=== PATIENT | female | born 1985 | race Caucasian/White ===

== ENCOUNTER 2017-02-11 09:30 | Outpatient (CLI) | payer MEDICAID ==
[~2017-02-11] VITALS: Ht 152.4 cm; Wt 59.1 kg
[~2017-02-11 09:30] MED LIST: ACET500C5 PO; DENIES
[2017-02-11 09:38] VITALS: Ht 152.4 cm; Wt 59.1 kg
[2017-02-11] MEDS ORDERED: PRENAT PO (09:39)
--- NOTE | 2017-02-11 10:10 | RADRPT ---
PROCEDURE: Limited OB ultrasound CLINICAL INDICATION: Vaginal bleeding TECHNIQUE: Sonographic evaluation to assess the placenta was performed. Transabdominal imaging of the gravid uterus was performed. COMPARISON: No prior exam is available for comparison. FINDINGS: There is a single live intrauterine with cardiac activity, with a heart rate o f 136 bpm. position is cephalic. The placenta is posterior. There is no evidence of placent al abruption or previa. The cervix is closed with a length of 5.1 cm. IMPRESSION: 1. Posterior placenta without evidence of placental abruption or previa. 2. The cervix is closed with a length of 5.1 cm. RPTAT: HH .Cammy Belcher MD, MD Date Time Electronically viewed and signed by .Cammy Belcher MD, on 02/11/2017 10:10 .G/
[2017-02-11 11:08] LABS: URINE BLOOD (Dip) POC 3+ (NEGATIVE)
--- NOTE | 2017-02-11 11:53 | TRIAGE ---
OB Triage Datetime Report Generated by CPN: 02/11/2017 11:53 Datetime: 02/11/2017 11:16 Stage of : OB Triage Maternal Assessment Level of Consciousness: Fully Conscious DTR's/Clonus: DTRs 1+ Headache: Denies Breath Sounds, Left: Clear and Equal Breath Sounds, Right: Clear and Equal Nausea/Vomiting: Denies RUQ Epigastric Pain: Denies Labor Evaluation Frequency: NONE Monitor Mode: External Resting Tone [place]: Relaxed Heart Rate FHR Baseline Rate: 145 Monitor Mode: External US Variability: Moderate 6-25 bpm Accelerations: 10X10 Decelerations: None Category: Category I Pain Assessment Pain Scale: 2 Pain Presence: Intermittent Pain Type: Dull Pain Location: Back Pain Goal: 2 Vaginal Exam Membrane Status: Intact Datetime: 02/11/2017 10:50 Stage of : OB Triage Maternal Assessment Level of Consciousness: Fully Conscious DTR's/Clonus: DTRs 1+ Headache: Denies Breath Sounds, Left: Clear and Equal Breath Sounds, Right: Clear and Equal Nausea/Vomiting: Denies RUQ Epigastric Pain: Denies Labor Evaluation Frequency: NONE Monitor Mode: External Resting Tone [place]: Relaxed Heart Rate FHR Baseline Rate: 145 Monitor Mode: External US Variability: Moderate 6-25 bpm Accelerations: 10X10 Decelerations: None Category: Category I Pain Assessment Pain Scale: 2 Pain Presence: Intermittent Pain Type: Dull Pain Location: Back Pain Goal: 2 Vaginal Exam Membrane Status: Intact Datetime: 02/11/2017 09:59 Maternal Assessment Level of Consciousness: Fully Conscious DTR's/Clonus: DTRs 1+ Headache: Denies Blurred Vision: No Respiratory Effort: Unlabored Breath Sounds, Left: Clear and Equal Breath Sounds, Right: Clear and Equal Nausea/Vomiting: Denies RUQ Epigastric Pain: Denies Facial Edema: None Labor Evaluation Frequency: NONE Monitor Mode: External Resting Tone [place]: Relaxed Heart Rate FHR Baseline Rate: 165 Monitor Mode: Doppler Vaginal Exam Membrane Status: Intact Datetime: 02/11/2017 09:35 Assessment Type: Triage Maternal Assessment Level of Consciousness: Fully Conscious DTR's/Clonus: DTRs 2+; No Clonus Headache: Denies Blurred Vision: No Respiratory Effort: Unlabored; Regular Rhythm; Equal Expansion Breath Sounds, Left: Clear and Equal Breath Sounds, Right: Clear and Equal Nausea/Vomiting: Denies RUQ Epigastric Pain: Denies Lower Extremities Edema: None Degree: None Upper Extremities Edema: None Degree: None Facial Edema: None Fall Risk Assessment History of Falling: (0) No Secondary Diagnosis: (0) No Ambulatory Aid: (0) Bedrest/Nurse Assist IV Therapy: (0) No Gait: (0) Normal/Bedrest/Immobile Mental Status: (0) Oriented to Own Ability Fall Score: 0 Fall Risk Score Definition: No Risk: No action required Datetime: 02/11/2017 09:34 EGA: 27.1 Datetime: 02/11/2017 09:30 Time of Arrival: 02/11/2017 09:30 Arrived By: Ambulatory Arrived From: Home Chief Complaint: PT CAME N C/O BLEEDING SINCE SATURDAY AND PASSING 1 CLOTH TODAY Movement: Present Contractions: Denies/Absent Rupture of Membranes: Denies Vaginal Discharge: Denies Recent Sexual Intercouse: Denies Abdominal Trauma: Not Applicable Additional Patient Complaints: NONE Time Provider Notified: 02/11/2017 09:48 Provider Notified: [facility] Initial Plan: DOPPLER AND MONITOR PLACENTA LOCATION U/S, CERVICAL LENGTH Datetime: 02/11/2017 09:25 Stage of : OB Triage
--- NOTE | 2017-03-17 18:07 | DS ---
Date/Time of Note Date/Time of Note DATE: 03/17/17 TIME: 17:58 Discharge Summary Admission/Discharge Info Admit Date/Time 02/11/17 Discharge Date/Time 02/11/17 Final Diagnosis passed small blood clot us report no pp discharged home with home instruction Patient Condition: Good Procedures observation Hx of Present Illness r/o labor Hospital Course satisfactory uneventful Home Meds Reported Medications Hydroxyprogesterone Caproate ([place]) 250 Mg/1 Ml Vial, 250 MG IM, VIAL 02/25/17 Multivit/Min/Fol Ac/Iron/Pren* ( S*) 1 Tab Tab, 1 TAB PO DAILY, TAB 02/11/17 Follow-up Plan office appointment RAYA BASS MD March 17, 2017 18:07
--- NOTE | 2017-03-26 19:40 | QN ---
Documentation Comment 27 weeks suspected labor RAYA BASS MD March 26, 2017 19:40
== END 2017-02-11 11:30 | disposition home or self-care (01) ==
LOC: OBT 09:30 → L-D 09:31 → OBT 11:30
PROVIDERS: ATTEND Obstetrics & Gynecology
DX: O26.892 Other specified pregnancy related conditions, second trimester (principal); Z3A.27 27 weeks gestation of pregnancy
CPT/HCPCS: 76815; 76817; 81003; Z7500; G0463

== ENCOUNTER 2017-02-25 11:21 | Outpatient (CLI) | payer MEDICAID ==
[~2017-02-25] VITALS: Ht 152.4 cm; Wt 60.5 kg
[~2017-02-25 11:21] MED LIST changes: +PRENAT PO
[2017-02-25 11:33] VITALS: BP 113/63; PULSE 100; RESP 16; Ht 152.4 cm; Wt 60.5 kg
[2017-02-25] MEDS ORDERED: HYDR250V5 IM (11:36)
--- NOTE | 2017-02-25 11:59 | RADRPT ---
PROCEDURE: Limited obstetric ultrasound CLINICAL INDICATION: Vaginal bleeding TECHNIQUE: Multiple transverse and longitudinal grayscale images of the pelvis were obtained peace sabdominally and transvaginally.. COMPARISON: 02/11/2017 FINDINGS: The cervix is closed with a length of 4.1 cm. There is a single viable intrauterine gestation. Cardiac activity is present with 148 beats per min marily. There is a vertex presentation. The placenta is posterior. There is no evidence for an abruption or placenta previa. RPTAT: AA IMPRESSION: Cervix length measures 4.1 cm. .Franko Can MD, Date Time Electronically viewed and signed by .Franko Can MD, on 02/25/2017 11:58 .S/
--- NOTE | 2017-02-25 12:43 | TRIAGE ---
OB Triage Datetime Report Generated by CPN: 02/25/2017 12:42 Datetime: 02/25/2017 12:33 Labor Evaluation Frequency: x1 Monitor Mode: External Duration (sec)2399: 20 Quality: Mild Pattern: Normal: <= 5 Contractions in 10 Minutes Resting Tone [place]: Relaxed Heart Rate FHR Baseline Rate: 145 Monitor Mode: External US Variability: Moderate 6-25 bpm Accelerations: 15X15 Decelerations: None Category: Category I Pain Assessment Pain Scale: 3 Pain Presence: Intermittent Pain Type: Dull Pain Location: Abdomen Pain Goal: 3 Datetime: 02/25/2017 12:01 Pattern: Normal: <= 5 Contractions in 10 Minutes Contraction Comments: no uc Heart Rate FHR Baseline Rate: 145 Monitor Mode: External US Variability: Moderate 6-25 bpm Accelerations: 15X15 Decelerations: None Category: Category I Pain Assessment Pain Scale: 3 Pain Presence: Intermittent Pain Type: Pressure Pain Location: Abdomen Pain Goal: 3 Datetime: 02/25/2017 11:46 Assessment Type: Triage Maternal Assessment Level of Consciousness: Fully Conscious DTR's/Clonus: DTRs 2+; No Clonus Headache: Denies Blurred Vision: No Respiratory Effort: Unlabored; Regular Rhythm; Equal Expansion Breath Sounds, Left: Clear and Equal Breath Sounds, Right: Clear and Equal Nausea/Vomiting: Denies RUQ Epigastric Pain: Denies Facial Edema: None Fall Risk Assessment History of Falling: (0) No Secondary Diagnosis: (0) No Ambulatory Aid: (0) Bedrest/Nurse Assist IV Therapy: (0) No Gait: (0) Normal/Bedrest/Immobile Mental Status: (0) Oriented to Own Ability Fall Score: 0 Fall Risk Score Definition: No Risk: No action required Datetime: 02/25/2017 11:27 Time of Arrival: 02/25/2017 11:10 EGA: 29.1 Arrived By: Ambulatory Arrived From: Home Chief Complaint: PT. came to hospital c/o mild vag bleeding start 3 days ago, pt. is on orlin 250 mg im weekly Movement: Present Contractions: Denies/Absent Rupture of Membranes: Denies Vaginal Bleeding: Bright Red Vaginal Discharge: Denies Recent Sexual Intercouse: Denies Abdominal Trauma: Not Applicable Patient Complaints: Other Time Provider Notified: 02/25/2017 12:26 Provider Notified: kay Initial Plan: u/s placenta cxl Datetime: 02/11/2017 09:35 Fall Score: 0 Fall Risk Score Definition: No Risk: No action required Datetime: 02/11/2017 09:34 EGA: 27.1
--- NOTE | 2017-03-17 18:41 | DS ---
Date/Time of Note Date/Time of Note DATE: 03/17/17 TIME: 18:37 Obstetrical Discharge Record Final Diagnosis Final Diagnosis: not delivered Complications Other Augmentation: No Induction: No Third Trimester Bleeding: Other Rupture of Membranes: No Condition on Discharge Physical Assessment Last Vitals: vs stable Voiding: Yes Breast: Soft, non-tender, Filling Calf Tenderness: No Patient Condition: Good RAYA BASS MD March 17, 2017 18:41
--- NOTE | 2017-03-26 19:44 | QN ---
Documentation Comment suspected labor RAYA BASS MD March 26, 2017 19:44
== END 2017-02-25 12:50 | disposition home or self-care (01) ==
LOC: OBT 11:21 → L-D 11:22 → OBT 12:50
PROVIDERS: ATTEND Obstetrics & Gynecology
DX: O60.03 Preterm labor without delivery, third trimester (principal); O46.93 Antepartum hemorrhage, unspecified, third trimester; Z3A.29 29 weeks gestation of pregnancy
CPT/HCPCS: 76815; 76817; Z7500; G0463

== ENCOUNTER 2017-04-27 01:51 | Inpatient (IN) | payer MEDICAID ==
[~2017-04-27] VITALS: Ht 152.4 cm; Wt 63.6 kg
[~2017-04-27 01:51] MED LIST changes: -ACET500C5 PO; -DENIES; +HYDR250V5 IM
[2017-04-27 02:21] VITALS: Ht 152.4 cm; Wt 63.6 kg
[2017-04-27 02:22] VITALS: BP 132/82; PULSE 105; RESP 18
[2017-04-27] MEDS ORDERED: LACTATED RINGER'S 1,000 ML IV SCH (02:23)
[2017-04-27] MEDS ORDERED: MISOPROSTOL 200 MCG TAB PR PRN ×2 (02:30→10:30)
[2017-04-27] MEDS ORDERED: OXYTOCIN 30 UNITS/LR 500 ML IV SCH (02:30)
[2017-04-27] MEDS ORDERED: CARBOPROST 250 MCG INJ IM PRN ×2 (02:30→10:30)
[2017-04-27] MEDS ORDERED: METHYLERGONOVINE 0.2 MG INJ IM PRN ×2 (02:30→10:30)
[2017-04-27] MEDS ORDERED: OXYTOCIN 30 UNITS/LR 500 ML IV PRN ×2 (02:30→10:30)
[2017-04-27] MEDS ORDERED: CEFAZOLIN 2 GM/50 ML (PMX) 50 ML IV SCH (02:30)
[2017-04-27 02:49] LABS: ADD SCAN DIFF NO
[2017-04-27 02:50] LABS: BASOPHILS % 0.2 % (0.0-2.0); EOSINOPHILS # 0.1 10^3/ul (0.0-0.5); EOSINOPHILS % 0.8 % (0.0-7.0); HEMATOCRIT 37.4 % (37.0-47.0); HEMOGLOBIN 12.7 g/dl (12.0-16.0); LYMPHOCYTES # 2.1 10^3/ul (0.8-2.9); LYMPHOCYTES % 24.3 % (15.0-51.0); MEAN CORPUSCULAR HEMOGLOBIN 29.4 pg (29.0-33.0); MEAN CORPUSCULAR VOLUME 86.6 fl (82.0-101.0); MONOCYTE # 0.7 10^3/ul (0.3-0.9); MONOCYTES % 7.5 % (0.0-11.0); NEUTROPHIL # 5.9 10^3/ul (1.6-7.5); NEUTROPHILS % 66.6 % (39.0-77.0); PLATELET COUNT 260 10^3/UL (140-415); RED BLOOD COUNT 4.32 10^6/ul (4.20-5.40); RED CELL DISTRIBUTION WIDTH 12.6 % (11.5-14.5); WHITE BLOOD COUNT 8.8 10^3/ul (4.8-10.8)
[2017-04-27 03:11] LABS: INR 0.83; PROTIME 11.4 Sec (12.2-14.2); PT RATIO 0.9
[2017-04-27 03:12] LABS: PARTIAL THROMBOPLASTIN TIME 25.3 Sec (25.0-35.0)
[2017-04-27] MEDS ORDERED: CITRIC ACID/SODIUM CITRATE 15 ML CUP ONE (03:38)
[2017-04-27] MEDS ORDERED: FENTAnyl 50 MCG/ML VIAL ONE (03:43)
[2017-04-27] MEDS ORDERED: morphine SULFATE/PF (10 MG/10 ML) INJ ONE (03:43)
[2017-04-27] MEDS ORDERED: ONDANSETRON 4 MG INJ ONE (04:16)
[2017-04-27] MEDS ORDERED: MIDAZOLAM 1 MG/ML 2 ML INJ ONE (04:16)
[2017-04-27] MEDS ORDERED: EPHEDrine SULFATE 50 MG/5 ML SYG ONE (04:22)
[2017-04-27] MEDS ORDERED: MEPERIDINE 25 MG INJ IV PRN ×2 (04:30→09:00)
[2017-04-27] MEDS ORDERED: PROCHLORPERAZINE 10 MG INJ IV PRN (04:30)
[2017-04-27] MEDS ORDERED: OXYTOCIN 30 UNITS/LR 500 ML IV ONE (04:30)
[2017-04-27] MEDS ORDERED: KETOROLAC 30 MG INJ IV PRN ×3 (04:30→22:00)
[2017-04-27] MEDS ORDERED: FENTAnyl 50 MCG/ML VIAL IV PRN ×3 (04:30→09:00)
[2017-04-27] MEDS ORDERED: HYDROmorphONE (0.2 MG/ML) 10ML SYG IV PRN (04:30)
[2017-04-27] MEDS ORDERED: DIPHENHYDRAMINE 50 MG INJ IV PRN ×2 (04:30→09:00)
[2017-04-27] MEDS ORDERED: ONDANSETRON 4 MG INJ IV PRN ×2 (04:30→09:00)
[2017-04-27] MEDS ORDERED: PHENYLephrine (100 MCG/ML) 5ML SYG ONE (04:34)
--- NOTE | 2017-04-27 06:49 | HP ---
DATE OF ADMISSION: 04/27/2017 HISTORY OF PRESENT ILLNESS: The patient is a 31-year-old, G3, P2 who presents at 37-1/2 weeks compl aining of uterine contractions, no vaginal bleeding, positive movement. PAST MEDICAL HISTORY: None. PAST SURGICAL HISTORY: x1. MEDICATIONS: vitamins. PHYSICAL EXAMINATION: VITAL SIGNS: Stable. HEART: Regular rhythm. LUNGS: Clear to auscultation bilaterally. ABDOMEN: Soft, nontender. No rebound or guarding. Fundal height is 38.8 cm. EXTREMITIES: No edema. Category 1 tracing. The patient is 6 to 7 cm in advanced labor. ASSESSMENT: Intrauterine at 37-1/2 weeks in active labor. Patient has history of section x1 in the past. Risks and benefits discussed with the patie nt who desired repeat section. Risks of infection, bleeding, damage to organs, plus a bloo d transfusion all discussed with the patient. The patient understands the risks and consents to the repeat section. Dictated By: BETI MCGEE MD /BALJEET Conf#: [id number] DID#: [id number]
[2017-04-27 08:45] VITALS: BP 128/78; PULSE 103; RESP 20
[2017-04-27] MEDS ORDERED: MIDAZOLAM 1 MG/ML 2 ML INJ IV PRN (09:00)
[2017-04-27] MEDS ORDERED: morphine (1 MG/ML) 10ML SYRINGE IV PRN ×2 (09:00)
[2017-04-27] MEDS ORDERED: METOCLOPRAMIDE 10 MG INJ IV PRN (09:00)
[2017-04-27] MEDS: LACTATED RINGER'S 1,000 ML IV SCH ×2 (10:09→19:55)
[2017-04-27] MEDS ORDERED: NA PHOSPHATE/BIPHOS 133 ML ENEMA PR PRN (10:30)
[2017-04-27] MEDS: MULTIVIT/MIN/FOLATE/IRON/PREN TAB PO SCH (10:30)
[2017-04-27] MEDS ORDERED: LANOLIN 7 GM TUBE TOP PRN (10:30)
[2017-04-27] MEDS: OXYTOCIN 30 UNITS/LR 500 ML IV SCH ×2 (10:55→15:04)
[2017-04-27 12:00] VITALS: BP 110/69; RESP 20
[2017-04-27 15:06] VITALS: BP 120/72; PULSE 100; RESP 18
[2017-04-27] MEDS ORDERED: KETOROLAC 30 MG INJ ONE (19:52)
[2017-04-27 20:00] VITALS: BP 117/74; PULSE 100; RESP 20
[2017-04-27] MEDS ORDERED: morphine 10 MG INJ IM PRN (20:00)
[2017-04-27 23:30] VITALS: BP 92/56; PULSE 83; RESP 18
[2017-04-28] MEDS: LACTATED RINGER'S 1,000 ML IV SCH (02:09)
[2017-04-28 04:30] VITALS: BP 112/62; PULSE 84; RESP 18
[2017-04-28] MEDS: IBUPROFEN 800 MG TAB PO SCH ×3 (06:13→21:34)
[2017-04-28 07:30] VITALS: BP 92/54; PULSE 84; RESP 18
[2017-04-28 07:50] LABS: HEMATOCRIT 30.9 % (37.0-47.0); HEMOGLOBIN 10.3 g/dl (12.0-16.0)
[2017-04-28] MEDS: MULTIVIT/MIN/FOLATE/IRON/PREN TAB PO SCH (08:24)
[2017-04-28] MEDS: SENNA/DOCUSATE NA (8.6MG/50MG) TAB PO SCH ×2 (08:24→21:35)
--- NOTE | 2017-04-28 08:54 | PN ---
Date/Time of Note Date/Time of Note DATE: 04/28/17 TIME: 08:53 OB Subjective Subjective Subjective Post day 1 Afebrile vital signs are stable abdomen soft moderate distention bowel sounds present incision dry lochia moderate extremity normal ambulation encouraged Laboratory Tests Test 04/28/17 07:13 Hemoglobin 10.3g/dl Hematocrit 30.9% Current Medications Medications (Trade) Dose Ordered Sig/Misha Route PRN Reason Start Time Stop Time Status Last Admin Dose Admin Lactated Ringer's 1,000 ml @ 125 mls/hr Q8H IV 04/27/17 02:23 04/27/17 10:17 DC 04/27/17 02:46 Cefazolin Sodium/ Dextrose 50 ml @ 100 mls/hr ONCE IV 04/27/17 02:30 04/27/17 10:17 DC Oxytocin/Lactated Ringer's 500 ml @ 125 mls/hr ONCE IV 04/27/17 02:30 04/27/17 10:17 DC 04/27/17 06:55 Oxytocin/Lactated Ringer's 500 ml @ 0 mls/hr ONCE PRN IV For Hemorrhage Management 04/27/17 02:30 04/27/17 10:17 DC Methylergonovine Maleate (Methergine) 0.2 mg ONCE PRN IM VAGINAL BLEEDING 04/27/17 02:30 04/27/17 10:17 DC 04/27/17 04:39 Carboprost Tromethamine (Hemabate) 250 mcg ONCE PRN IM VAGINAL BLEEDING 04/27/17 02:30 04/27/17 10:17 DC Misoprostol (Cytotec) 1,000 mcg ONCE PRN VA VAGINAL BLEEDING 04/27/17 02:30 04/27/17 10:17 DC Citric Acid/ Sodium Citrate (Bicitra) 15 ml STK-MED ONCE .ROUTE 04/27/17 03:38 04/27/17 03:39 DC Fentanyl (Sublimaze) 100 mcg STK-MED ONCE .ROUTE 04/27/17 03:43 04/27/17 03:44 DC Morphine Sulfate (Duramorph) 10 mg STK-MED ONCE .ROUTE 04/27/17 03:43 04/27/17 03:44 DC Ondansetron HCl (Zofran Inj) 4 mg STK-MED ONCE .ROUTE 04/27/17 04:16 04/27/17 04:17 DC Midazolam HCl (Versed) 2 mg STK-MED ONCE .ROUTE 04/27/17 04:16 04/27/17 04:17 DC Hydromorphone HCl (Dilaudid (Rec)) 0.4 mg PACU ORDER PRN IV PAIN 04/27/17 04:30 04/27/17 08:30 DC Fentanyl (Sublimaze) 25 mcg PACU ORDER PRN IV PAIN 04/27/17 04:30 04/27/17 08:30 DC Ketorolac Tromethamine (Toradol) 30 mg PACU ORDER PRN IV PAIN 04/27/17 04:30 04/27/17 08:30 DC Ondansetron HCl (Zofran Inj) 4 mg PACU ORDER PRN IV NAUSEA AND/OR VOMITING 04/27/17 04:30 04/27/17 08:30 DC Prochlorperazine (Compazine Inj) 5 mg PACU ORDER PRN IV NAUSEA AND/OR VOMITING 04/27/17 04:30 04/27/17 08:30 DC Meperidine HCl (Demerol) 25 mg PACU ORDER PRN IV POST-OP RIGORS 04/27/17 04:30 04/27/17 08:30 DC Diphenhydramine HCl (Benadryl) 25 mg PACU ORDER PRN IV PRURITUS 04/27/17 04:30 04/27/17 08:30 DC Ephedrine Sulfate 50 mg 50 mg STK-MED ONCE .ROUTE 04/27/17 04:22 04/27/17 04:23 DC Oxytocin/Lactated Ringer's 500 ml @ ud STK-MED ONCE IV 04/27/17 04:30 04/27/17 04:31 DC Phenylephrine HCl (Rosendo-Synephrine Inj Syg) 500 mcg STK-MED ONCE .ROUTE 04/27/17 04:34 04/27/17 04:35 DC Morphine Sulfate (morphine (REC)) 2 mg PACU ORDER PRN IV PAIN LEVEL 1-5 04/27/17 09:00 04/27/17 21:04 DC Morphine Sulfate (morphine (REC)) 4 mg PACU ORDER PRN IV PAIN LEVEL 6-10 04/27/17 09:00 04/27/17 21:04 DC Fentanyl (Sublimaze) 25 mcg PACU ORDER PRN IV PAIN LEVEL 1-5 04/27/17 09:00 04/27/17 10:17 DC Fentanyl (Sublimaze) 50 mcg PACU ODER PRN IV PAIN LEVEL 6-10 04/27/17 09:00 04/27/17 10:17 DC Ondansetron HCl (Zofran Inj) 4 mg PACU ORDER PRN IV NAUSEA AND/OR VOMITING 04/27/17 09:00 04/27/17 21:04 DC Metoclopramide HCl (Reglan) 10 mg PACU ORDER PRN IV NAUSEA AND/OR VOMITING 04/27/17 09:00 04/27/17 21:04 DC Meperidine HCl (Demerol) 25 mg PACU ORDER PRN IV POST-OP RIGORS 04/27/17 09:00 04/27/17 21:04 DC Diphenhydramine HCl (Benadryl) 25 mg PACU ORDER PRN IV PRURITUS 04/27/17 09:00 04/27/17 21:04 DC Midazolam HCl 0.5 mg 0.5 mg PACU ORDER PRN IV ANXIETY 04/27/17 09:00 04/27/17 10:17 DC Lactated Ringer's 1,000 ml @ 125 mls/hr Q8H IV 04/27/17 10:09 04/27/17 19:55 Oxytocin/Lactated Ringer's 500 ml @ 125 mls/hr Q4H IV 04/27/17 10:09 04/27/17 21:05 DC 04/27/17 15:04 Acetaminophen/ Codeine Phosphate (Tylenol No.3) 1 tab Q4H PRN PO PAIN LEVEL 4-6 04/27/17 10:30 Acetaminophen/ Codeine Phosphate (Tylenol No.3) 2 tab Q4H PRN PO PAIN LEVEL 7-10 04/27/17 10:30 Ibuprofen (Motrin) 800 mg Q8 PO 04/28/17 06:00 04/28/17 06:13 Simethicone (Mylicon) 160 mg Q8H PRN PO DISTENSION/GAS/BLOATING 04/27/17 10:30 Senna/Docusate Sodium (Senokot-S) 1 tab BID PO 04/28/17 09:00 04/28/17 08:24 Sodium Biphosphate/ Sodium Phosphate (Fleet Enema) 133 ml DAILY PRN [place] CONSTIPATION 04/27/17 10:30 Lanolin 1 applic 1 applic BEDSIDE MEDICATION PRN TOP BEDSIDE FOR MINI TO NIPPLES 04/27/17 10:30 Oxytocin/Lactated Ringer's 500 ml @ 0 mls/hr ONCE PRN IV For Hemorrhage Management 04/27/17 10:30 Methylergonovine Maleate (Methergine) 0.2 mg ONCE PRN IM VAGINAL BLEEDING 04/27/17 10:30 Carboprost Tromethamine (Hemabate) 250 mcg ONCE PRN IM VAGINAL BLEEDING 04/27/17 10:30 Misoprostol (Cytotec) 1,000 mcg ONCE PRN [place] VAGINAL BLEEDING 04/27/17 10:30 Prenat Multivit/ [place]/Iron/Folic Ac ( S) 1 tab DAILY PO 04/27/17 10:30 04/28/17 08:24 Ketorolac Tromethamine (Toradol) 30 mg Q6H PRN IV PAIN 04/27/17 20:00 04/30/17 19:59 UNV Morphine Sulfate (morphine) 2 mg Q4H PRN IM for breakthrough pain 7-10 04/27/17 20:00 Ketorolac Tromethamine (Toradol) 30 mg STK-MED ONCE .ROUTE 04/27/17 19:52 04/27/17 19:53 DC Ketorolac Tromethamine (Toradol) 30 mg Q6H PRN IV PAIN 04/27/17 22:00 04/30/17 21:59 RAYA BASS MD Apr 28, 2017 08:54
[2017-04-28 16:16] VITALS: BP 104/63; PULSE 97; RESP 18
--- NOTE | 2017-04-28 19:02 | OPR ---
DATE OF OPERATION: PREOPERATIVE DIAGNOSES: 1. Intrauterine at 37 1/2 weeks. 2. Active labor. 3. History of section x1. The patient desires repeat. POSTOPERATIVE DIAGNOSES: 1. Intrauterine at 37 1/2 weeks. 2. Active labor. 3. History of section x1. The patient desires repeat. SURGEON: Beti Mcgee MD MANAGER GENERATION: Dr. Squires OPERATION PERFORMED: Repeat low segment transverse section. FINDINGS: 1. Viable . 2. Normal tubes and ovaries. 3. Adhesions of the bladder to the mid portion of the uterus. COMPLICATIONS: None. ESTIMATED BLOOD LOSS: 800 mL. SPECIMEN: Placenta. INDICATIONS: The patient is a 31-year-old, G3, P2, who presented at 37 1/2 weeks, in active labor. Patient has a history of section x1 and desires repeat. Risks and benefits were discussed . The patient desired to proceed with a repeat section. DESCRIPTION OF PROCEDURE: The patient was taken to the operating room where a spinal was found to b e adequate. Patient was then prepped and draped in normal sterile fashion. ID was confirmed. A sk in revision was done the previous scar. The incision was then carried out until the underlyin g fascia was reached. The fascia was nicked in the midline and extended laterally in both direction s with the [place] scissors. The fascia was taken off the rectus muscle both superiorly. Midline was identified, picked up with 2 Kellys and entered sharply with the Metzenbaum scissors. The incision was then extended superiorly and inferiorly so that the patient had adhesions of the bladder to the upper mid portion of the uterus. These adhesions were then carefully taken down and then a bladder flap was created. The bladder flap was then taken down. A low segment incision was made on the marily michelle. Uterine incision was extended with bandage scissors. The infant's head was delivered atraumat ically without any complications delivery. was performed. Cord was cut and clamped. Placenta delivered. Pitocin was given. Placenta was exteriorized, cleared of all blood clots and d ebris. The uterine incision was closed with 0 Monocryl in running fashion. A second imbricating la deng was also placed. There was some bleeding from the left side of the incision, so an additional 0 Vicryl suture was placed to control this bleeding. Uterus was placed back in the abdominal cavity. Blood was cleared from the gutters. There was good hemostasis. Surgicel was placed on the left s facundo . The rectus muscles and the peritoneum were back together in the midline using a 2- 0 Vicryl. The fascia was closed with 0 Vicryl. The subcutaneous fat was closed with 2-0 plain. The skin was closed with javier. correct x2. Patient was stable to recovery. Dictated By: BETI MCGEE MD /NTS Conf#: [id number] DID#: [id number]
[2017-04-28] MEDS: ACETAMINOPHEN/CODEINE #3 TAB PO PRN (20:00)
[2017-04-28 20:10] VITALS: BP 106/57; PULSE 101; RESP 18
[2017-04-29 04:15] VITALS: BP 99/55; PULSE 83; RESP 18
[2017-04-29] MEDS: IBUPROFEN 800 MG TAB PO SCH ×3 (05:57→21:47)
[2017-04-29 08:08] VITALS: BP 100/73; PULSE 95; RESP 18
[2017-04-29] MEDS: MULTIVIT/MIN/FOLATE/IRON/PREN TAB PO SCH (08:24)
[2017-04-29] MEDS: SENNA/DOCUSATE NA (8.6MG/50MG) TAB PO SCH ×2 (08:24→21:47)
[2017-04-29] MEDS: ACETAMINOPHEN/CODEINE #3 TAB PO PRN ×2 (08:25→18:21)
--- NOTE | 2017-04-29 10:05 | PN ---
Date/Time of Note Date/Time of Note DATE: 04/29/17 TIME: 10:04 OB Subjective Subjective Subjective Post day 2 Afebrile vital signs abdomen soft bowel sounds lochia moderate uterus incision extremities no normal bowel movement enema ordered RAYA BASS MD Apr 29, 2017 10:05
--- NOTE | 2017-04-29 10:09 | PN ---
Date/Time of Note Date/Time of Note DATE: 04/29/17 TIME: 10:08 OB Subjective Subjective Subjective Post day 2 Afebrile vital signs stable abdomen soft uterus firm incision dry lochia moderate bowel sounds present no bowel movement enema ordered RAYA BASS MD Apr 29, 2017 10:09
[2017-04-29] MEDS ORDERED: NA PHOSPHATE/BIPHOS 133 ML ENEMA PR ONE (10:30)
[2017-04-29 16:00] VITALS: BP 113/72; PULSE 86; RESP 18
[2017-04-29 20:00] VITALS: BP 124/68; PULSE 78; RESP 20
[2017-04-30 04:00] VITALS: BP 119/70; PULSE 74; RESP 20
[2017-04-30] MEDS: IBUPROFEN 800 MG TAB PO SCH (06:08)
[2017-04-30 07:45] VITALS: BP 105/74; PULSE 80; RESP 18
[2017-04-30] MEDS: SENNA/DOCUSATE NA (8.6MG/50MG) TAB PO SCH (09:52)
[2017-04-30] MEDS: MULTIVIT/MIN/FOLATE/IRON/PREN TAB PO SCH (09:52)
--- NOTE | 2017-04-30 10:20 | PD.PPDC ---
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 Patient Condition: Good Diet Diet: Resume Regular Diet Activity/Restrictions Activity: Normal Activity May Shower Restrictions: No Exercising No Lifting No Driving No Sexual Activity Nothing in the Vagina No [place] No Tampons, douche Wound/Drain Care Instructions Wound/Drain Care Instructions: Remove Steri Strips in 1 week Follow-up Follow-up with Physician: Day/Days Provider Information: Appointment clinic in 4 days to discontinue javier Return to clinic for VP REVENUE CYCLE Instructions: Fever greater than 101 Chills Worsening abdominal pain Excessive Vaginal Bleeding More than 2 pads per hour Unable to tolerate diet OB Instructions: Breast Tenderness Depression Blurried Vision Headache Surgical Instructions: Incisional Drainage Incisional Redness RAYA BASS MD Apr 30, 2017 10:20
--- NOTE | 2017-04-30 10:25 | DS ---
Date/Time of Note Date/Time of Note DATE: 04/30/17 TIME: 10:24 Discharge Summary Admission/Discharge Info Admit Date/Time Apr 27, 2017 at 02:11 Discharge Date/Time April 30, 2017 at 1020 Final Diagnosis Post repeat section date 3 Patient Condition: Good Procedures Repeat section Hx of Present Illness 37-1/2 weeks gestation history of previous Hospital Course Uneventful satisfactory Home Meds Reported Medications Hydroxyprogesterone Caproate ([place]) 250 Mg/1 Ml Vial, 250 MG IM, VIAL 02/25/17 Multivit/Min/Fol Ac/Iron/Pren* ( S*) 1 Tab Tab, 1 TAB PO DAILY, TAB 02/11/17 Follow-up Plan Appointment clinic in 4 days to discontinue javier Primary Care Provider Care Physician No Primary Time spent on discharge: < 30 minutes RAYA BASS MD Apr 30, 2017 10:25
--- NOTE | 2017-04-30 10:27 | PN ---
Date/Time of Note Date/Time of Note DATE: 04/30/17 TIME: 10:26 OB Subjective Subjective Subjective Post day 2 Afebrile vital signs are stable abdomen soft lochia moderate bowel sounds present no bowel movement extremity negative enema recommended ambulation encouraged RAYA BASS MD Apr 30, 2017 10:27
[2017-04-30] MEDS ORDERED: NA PHOSPHATE/BIPHOS 133 ML ENEMA PR ONE (10:30)
[2017-04-30] MEDS: ACETAMINOPHEN/CODEINE #3 TAB PO PRN (11:41)
== END 2017-04-30 13:05 | disposition home or self-care (01) | DRG 766 ==
LOC: OBT 01:51 → L-D 01:52 → OBT 02:11 → L-D 02:56 → PP1 08:31
PROVIDERS: ADMIT Obstetrics & Gynecology; ATTEND Obstetrics & Gynecology
PROC: 10D00Z1 Extraction of Products of Conception, Low, Open Approach (ICD-10-PCS; principal; 2017-04-27 04:15)
DX: O34.211 Maternal care for low transverse scar from previous cesarean delivery (principal); Z37.0 Single live birth; Z3A.37 37 weeks gestation of pregnancy
CPT/HCPCS: 85014; 85018; 85025; 85610; 85730; 86592; 86850; 86900; 86901; 99464; G0463; J0690; J1885; J2210; J2250; J2274; J2370; J2405; J2590; J3010; J7120

== ENCOUNTER 2019-04-05 20:59 | Inpatient (IN) | payer MEDICAID ==
[~2019-04-05] VITALS: Ht 152.4 cm; Wt 64.1 kg
[2019-04-05 21:13] VITALS: Ht 152.4 cm; Wt 64.1 kg
[2019-04-05 21:14] VITALS: BP 114/68; PULSE 83; RESP 16
[2019-04-05] MEDS: LACTATED RINGER'S 1,000 ML IV SCH ×2 (21:33→23:47)
[2019-04-05] MEDS ORDERED: TERBUTALINE 1 MG/ML INJ SC PRN (23:00)
[2019-04-06] MEDS ORDERED: NIFEdipine 10 MG CAP PO ONE
[2019-04-06] MEDS: LACTATED RINGER'S 1,000 ML IV SCH ×3 (00:40→19:02)
[2019-04-06] MEDS ORDERED: MAGNESIUM SULFATE 4 GM/100 ML 100 ML IV ONE (01:00)
[2019-04-06] MEDS: MAGNESIUM SULFATE 20 GM/500 ML 500 ML IV SCH ×3 (01:39→22:54)
--- NOTE | 2019-04-06 07:46 | HP ---
Date/Time of Note Date/Time of Note DATE: 04/06/19 TIME: 07:35 OB - History Hx of Present Free Text/Dictation 33 y.o. with an IUP at 35 weeks and a h/o PTL came in with contractions and after IV hydration, one dose of terbutaline, one dose of Procardia, ended up admitting her for magnesium sulfate tocolysis. Pt has a h/o x 2 (her 1st and last pregnancies) so will be a repeat . Her 2nd baby was born at 26 weeks and has hydrocephaly and has cerebral palsy.Pt received betamethasone on March 24 and on a prior admit for the same thing. Estimated Due Date: May 11, 2019 : 5 Para: 4 Care: Good Care Ultrasounds: Abnormal US findings (2 vessel cord, by report.) Obstetrical Complications: Other (PTL) Medical Complications: None Past Family/Social History * Past Medical, Surgical, Family and Obstetric Histories reviewed from chart. Blood Type: A+ Rubella: immune RPR/VDRL: Negative GBS Status: Unknown HBsAG: Negative OB Admission Exam Vital Signs Vital Signs Vital Signs Date Temp Pulse Resp B/P (MAP) Pulse Ox O2 O2 Flow FiO2 Time Delivery Rate 04/05/19 98.1 83 16 114/68 21:14 (83) Physical Exam HEENT: WNL Heart: Rhythm Normal Lungs: Clear Abdomen: WNL Extremities: Normal Reflexes: Normal Membranes: Intact Heart Rate: 150's Accelerations: Accelerations Present Decelerations: No Decelerations Varibility: Moderate Contractions on Admission: < 5 Minutes Apart Intensity: Mild OB Assessment/Plan Reason for admission: labor Other Assessment: IUP at 35 weeks. Other plan: Magnesium sulfate tocolysis. FRANKLIN VILLANUEVA MD April 06, 2019 07:45
[2019-04-06] MEDS: ACETAMINOPHEN 325 MG TAB PO PRN ×3 (07:55→20:18)
[2019-04-06] MEDS: PRENATAL VITAMIN PO SCH (10:11)
[2019-04-07] MEDS: ACETAMINOPHEN 325 MG TAB PO PRN ×2 (05:35→08:44)
[2019-04-07] MEDS: PRENATAL VITAMIN PO SCH (08:44)
[2019-04-07] MEDS: MAGNESIUM SULFATE 20 GM/500 ML 500 ML IV SCH (08:47)
[2019-04-07] MEDS: LACTATED RINGER'S 1,000 ML IV SCH ×2 (08:49→18:31)
--- NOTE | 2019-04-07 15:40 | QN ---
Documentation Comment 34+wks GA with labor NSt reassuring [place] No CTXs Pelvic deferred CXL 2.5 --->Stop Mg --->possible discharge tomorrow MARK VALENZUELA M.D. April 07, 2019 15:40
[2019-04-07] MEDS: NIFEdipine 10 MG CAP PO SCH ×2 (15:56→22:42)
[2019-04-08] MEDS ORDERED: NIFEdipine 10 MG CAP PO SCH
--- NOTE | 2019-04-08 01:47 | CONS ---
DATE OF ADMISSION: 04/06/2019 DATE OF CONSULTATION: 04/07/2019 HISTORY OF PRESENT ILLNESS: The patient is at intrauterine at 34 weeks and 1 day who was a dmitted again because of the contractions. Cervical length is unchanged at 2.6 cm. She received bet amethasone very recently. She was placed again on magnesium sulfate at the time of admission. heart tone is reassuring. Contractions are irritability infrequent contractions. RECOMMENDATIONS: Continue with the magnesium sulfate only for 24 hours then discontinue and if the b lood pressures allow, Procardia 20 mg every 6 hours until 36 weeks is recommended. The patient can b e discharged home if she is stable without cervical change and she is comfortable after 24 hours of P rocardia. Dictated By: ISABELLE HALL MD ST/NTS Conf#: [id number] DID#: [id number] CC: TYREL ESPARZA MD;*EndCC*
[2019-04-08] MEDS: LACTATED RINGER'S 1,000 ML IV SCH (02:02)
[2019-04-08] MEDS: NIFEdipine 10 MG CAP PO SCH (04:01)
--- NOTE | 2019-04-08 21:27 | DS ---
Date/Time of Note Date/Time of Note DATE: 04/08/19 TIME: 21:23 Obstetrical Discharge Record Final Diagnosis Final Diagnosis: not delivered Other Final Diagnosis 33-year-old G5, P4 with single intrauterine at 35 weeks and 1 day and history of labor in current admitted due to regular uterine contractions. She has received IV fluid, terbutaline and Procardia initially, as still had uterine contraction was admitted for treatment with magnesium sulfate for tocolysis. She is currently doing well, has no further uterine contractions. heart rate is category 1. No cervical changes since admission. She states good movement. She denies nausea, vomiting, shortness of breath, chest pain, headache, visual changes, vaginal bleeding or LOF. -FHR: No sign of metabolic acidosis- Category I -Contractions: None -Symptoms and sign of labor, preeclampsia, kick count discussed with patient, she voiced understanding. All of her questions answered. -Patient was discharged home in stable condition with the appropriate discharge instructions provided. I would like patient to have close follow-up with her primary physician or outpatient clinic in 1-2 days or return to triage for worsening symptoms or any other urgent concerns. Condition on Discharge Physical Assessment Voiding: Yes Bowel Movement: Yes Calf Tenderness: No Patient Condition: Stable TYREL ESPARZA April 08, 2019 21:27
== END 2019-04-08 10:30 | disposition home or self-care (01) | DRG 833 ==
LOC: OBT 20:59 → L-D 21:00 → OBT 04-06 00:42 → MERGE 05-11 10:12
PROVIDERS: ADMIT Obstetrics & Gynecology; ATTEND Obstetrics & Gynecology
DX: O60.03 Preterm labor without delivery, third trimester (principal); Z3A.35 35 weeks gestation of pregnancy
CPT/HCPCS: 76815; 76817; 76818; 81001; 83735; 96360; 96361; G0463; J3105; J3475; J7120

== ENCOUNTER 2019-04-22 23:15 | Outpatient (CLI) | payer MEDICAID ==
[~2019-04-22] VITALS: Ht 152.4 cm; Wt 66.1 kg
[~2019-04-22 23:15] MED LIST changes: -HYDR250V5 IM
[2019-04-23 00:03] VITALS: BP 123/68; PULSE 83; RESP 18
[2019-04-23] MEDS ORDERED: NIFE10CA PO (00:05)
--- NOTE | 2019-04-23 03:58 | TRIAGE ---
OB Triage Datetime Report Generated by CPN: 04/23/2019 03:56 Datetime: 04/23/2019 02:12 Monitor Mode: External Quality: Mild Pattern: Normal: <= 5 Contractions in 10 Minutes Resting Tone [place]: Relaxed Heart Rate FHR Baseline Rate: 135 Monitor Mode: External US Datetime: 04/23/2019 01:32 Stage of : OB Triage Monitor Mode: External Quality: Mild Pattern: Normal: <= 5 Contractions in 10 Minutes Resting Tone [place]: Relaxed Heart Rate FHR Baseline Rate: 130 Monitor Mode: External US Variability: Moderate 6-25 bpm Accelerations: 15X15 Decelerations: None Category: Category I Datetime: 04/23/2019 00:45 Stage of : OB Triage Labor Evaluation Frequency: 3-10 Monitor Mode: External Quality: Mild Pattern: Normal: <= 5 Contractions in 10 Minutes Resting Tone [place]: Relaxed Heart Rate FHR Baseline Rate: 140 Monitor Mode: External US FHR Baseline Changes: No Baseline Change Variability: Moderate 6-25 bpm Accelerations: 15X15 Decelerations: None Category: Category I Pain Presence: Intermittent Pain Type: Cramping Pain Location: Abdomen Datetime: 04/23/2019 00:24 Stage of : OB Triage Datetime: 04/22/2019 23:32 Stage of : OB Triage Maternal Assessment Level of Consciousness: Keenly Alert, Responsive Headache: Denies Blurred Vision: No Respiratory Effort: Unlabored Nausea/Vomiting: Denies RUQ Epigastric Pain: Denies Facial Edema: None Monitor Mode: External Resting Tone [place]: Relaxed Heart Rate FHR Baseline Rate: 140 Monitor Mode: External US Pain Assessment Pain Scale: 7 Pain Presence: Intermittent Pain Type: Contraction Pain Location: Abdomen Datetime: 04/22/2019 23:30 Time of Arrival: 04/22/2019 23:12 EGA: 36.2 Arrived By: Ambulatory Arrived From: Other Unit in Hospital Chief Complaint: w/ hx ptl and ptd presents w/ c/o irreg ucs. States she has been w/ son who i s pt in peds since yesterday, forgot procardia at home Contractions: Irregular Time Contractions Began: 04/22/2019 20:00 Contractions: q5-10 Rupture of Membranes: Denies Vaginal Bleeding: None Vaginal Discharge: Denies Recent Sexual Intercouse: Denies Abdominal Trauma: Not Applicable Patient Complaints: Contractions Time Provider Notified: 04/23/2019 00:45 Provider Notified: Dr Tinajero Initial Plan: EFM,SVE,UA Datetime: 04/08/2019 07:48 Assessment Type: Ongoing Assessment Maternal Assessment Level of Consciousness: Fully Conscious DTR's/Clonus: DTRs 2+; No Clonus Headache: Denies Blurred Vision: No Respiratory Effort: Unlabored; Regular Rhythm; Equal Expansion Breath Sounds, Left: Clear and Equal Breath Sounds, Right: Clear and Equal Nausea/Vomiting: Denies RUQ Epigastric Pain: Denies Facial Edema: None Fall Risk Assessment History of Falling: (0) No Secondary Diagnosis: (0) No Ambulatory Aid: (0) Bedrest/Nurse Assist IV Therapy: (20) Yes Gait: (0) Normal/Bedrest/Immobile Mental Status: (0) Oriented to Own Ability Fall Score: 20 Fall Risk Score Definition: No Risk: No action required Pain Presence: None/Denies Datetime: 04/08/2019 07:45 Labor Evaluation Frequency: occasional Monitor Mode: External Quality: Mild Resting Tone [place]: Relaxed Heart Rate FHR Baseline Rate: 120 Monitor Mode: External US FHR Baseline Changes: No Baseline Change Variability: Moderate 6-25 bpm Accelerations: 15X15 Decelerations: None Category: Category I Datetime: 04/08/2019 06:27 Stage of : Antepartum Labor Evaluation Frequency: OCCASIONAL Monitor Mode: External Duration (sec)2399: 40-80 Quality: Mild Pattern: Normal: <= 5 Contractions in 10 Minutes Resting Tone [place]: Relaxed Heart Rate FHR Baseline Rate: 125 Monitor Mode: External US Variability: Moderate 6-25 bpm Accelerations: 15X15 Decelerations: None Category: Category I Datetime: 04/08/2019 05:20 Stage of : Antepartum Labor Evaluation Frequency: OCCASIONAL Monitor Mode: External Duration (sec)2399: 40-60 Quality: Mild Pattern: Normal: <= 5 Contractions in 10 Minutes Resting Tone [place]: Relaxed Contraction Comments: MILD IRRITABILITY NOTED Heart Rate FHR Baseline Rate: 125 Monitor Mode: External US Variability: Moderate 6-25 bpm Accelerations: 15X15 Decelerations: None Category: Category I Datetime: 04/08/2019 05:08 Labor Evaluation Frequency: occasional Monitor Mode: External Quality: Mild Resting Tone [place]: Relaxed Heart Rate FHR Baseline Rate: 120 Monitor Mode: External US Variability: Moderate 6-25 bpm Accelerations: 15X15 Decelerations: None Category: Category I Pain Presence: None/Denies Pain Assessment Comments: no leaking of fluid or blood from vagina Datetime: 04/08/2019 04:20 Stage of : Antepartum Labor Evaluation Frequency: occasional Monitor Mode: External Duration (sec)2399: 40-60 Pattern: Normal: <= 5 Contractions in 10 Minutes Resting Tone [place]: Relaxed Contraction Comments: mild irritability noted Heart Rate FHR Baseline Rate: 125 Monitor Mode: External US Variability: Moderate 6-25 bpm Accelerations: 15X15 Decelerations: None Category: Category I Datetime: 04/08/2019 04:01 Stage of : Antepartum Maternal Assessment Level of Consciousness: Fully Conscious DTR's/Clonus: DTRs 2+; No Clonus Headache: Denies Breath Sounds, Left: Clear and Equal Breath Sounds, Right: Clear and Equal Nausea/Vomiting: Denies RUQ Epigastric Pain: Denies Temperature Route: Oral Pain Assessment Pain Scale: 0 Pain Presence: None/Denies Pain Type: N/A Datetime: 04/08/2019 03:20 Stage of : Antepartum Labor Evaluation Frequency: X0 Monitor Mode: External Duration (sec)2399: X0 Pattern: Normal: <= 5 Contractions in 10 Minutes Resting Tone [place]: Relaxed Heart Rate FHR Baseline Rate: 125 Monitor Mode: External US Variability: Moderate 6-25 bpm Accelerations: 15X15 Decelerations: None Category: Category I Datetime: 04/08/2019 02:16 Stage of : Antepartum Labor Evaluation Frequency: X0 Monitor Mode: External Duration (sec)2399: X0 Pattern: Normal: <= 5 Contractions in 10 Minutes Resting Tone [place]: Relaxed Heart Rate FHR Baseline Rate: 125 Monitor Mode: External US Variability: Moderate 6-25 bpm Accelerations: 15X15 Decelerations: None Category: Category I Datetime: 04/08/2019 01:34 Monitor Mode: External US Datetime: 04/08/2019 01:15 Stage of : Antepartum Labor Evaluation Frequency: X0 Monitor Mode: External Duration (sec)2399: X0 Pattern: Normal: <= 5 Contractions in 10 Minutes Resting Tone [place]: Relaxed Heart Rate FHR Baseline Rate: 135 Monitor Mode: External US Variability: Moderate 6-25 bpm Accelerations: 15X15 Decelerations: None Category: Category I Datetime: 04/08/2019 00:33 Stage of : Antepartum Maternal Assessment Level of Consciousness: Fully Conscious DTR's/Clonus: DTRs 2+; No Clonus Headache: Denies Breath Sounds, Left: Clear and Equal Breath Sounds, Right: Clear and Equal Nausea/Vomiting: Denies RUQ Epigastric Pain: Denies Temperature Route: Oral Monitor Mode: External US Pain Assessment Pain Scale: 0 Pain Presence: None/Denies Pain Type: N/A Datetime: 04/08/2019 00:10 Stage of : Antepartum Labor Evaluation Frequency: x0 Monitor Mode: External Duration (sec)2399: x0 Pattern: Normal: <= 5 Contractions in 10 Minutes Resting Tone [place]: Relaxed Heart Rate FHR Baseline Rate: 125 Monitor Mode: External US Variability: Moderate 6-25 bpm Accelerations: 15X15 Decelerations: None Category: Category I Datetime: 04/07/2019 23:10 Stage of : Antepartum Labor Evaluation Frequency: X0 Monitor Mode: External Duration (sec)2399: X0 Pattern: Normal: <= 5 Contractions in 10 Minutes Resting Tone [place]: Relaxed Heart Rate FHR Baseline Rate: 125 Monitor Mode: External US Variability: Moderate 6-25 bpm Accelerations: 15X15 Decelerations: None Category: Category I Datetime: 04/07/2019 22:28 Monitor Mode: External Contraction Comments: APPLIED Monitor Mode: External US Comments: APPLIED Datetime: 04/07/2019 21:45 Stage of : Antepartum Labor Evaluation Frequency: X0 Monitor Mode: External Duration (sec)2399: X0 Pattern: Normal: <= 5 Contractions in 10 Minutes Resting Tone [place]: Relaxed Contraction Comments: IRRITABILITY NOTED Heart Rate FHR Baseline Rate: 145 Monitor Mode: External US Variability: Moderate 6-25 bpm Accelerations: 15X15 Decelerations: None Category: Category I Datetime: 04/07/2019 21:09 Monitor Mode: External US Datetime: 04/07/2019 20:43 Stage of : Antepartum Labor Evaluation Frequency: X0 Monitor Mode: External Duration (sec)2399: X0 Pattern: Normal: <= 5 Contractions in 10 Minutes Resting Tone [place]: Relaxed Heart Rate FHR Baseline Rate: 135 Monitor Mode: External US Variability: Moderate 6-25 bpm Accelerations: 15X15 Decelerations: None Category: Category I Datetime: 04/07/2019 19:55 Stage of : Antepartum Assessment Type: Ongoing Assessment Maternal Assessment Level of Consciousness: Fully Conscious DTR's/Clonus: DTRs 2+; No Clonus Headache: Denies Blurred Vision: No Respiratory Effort: Unlabored; Regular Rhythm; Equal Expansion Breath Sounds, Left: Clear and Equal Breath Sounds, Right: Clear and Equal Nausea/Vomiting: Denies RUQ Epigastric Pain: Denies Lower Extremities Edema: None Degree: None Upper Extremities Edema: None Degree: None Facial Edema: None Temperature Route: Oral Fall Risk Assessment History of Falling: (0) No Secondary Diagnosis: (0) No Ambulatory Aid: (0) Bedrest/Nurse Assist IV Therapy: (20) Yes Gait: (0) Normal/Bedrest/Immobile Mental Status: (0) Oriented to Own Ability Fall Score: 20 Fall Risk Score Definition: No Risk: No action required Pain Assessment Pain Scale: 0 Pain Presence: None/Denies Pain Type: N/A Datetime: 04/07/2019 19:30 Labor Evaluation Frequency: X0 Monitor Mode: External Duration (sec)2399: X0 Pattern: Normal: <= 5 Contractions in 10 Minutes Resting Tone [place]: Relaxed Heart Rate FHR Baseline Rate: 135 Monitor Mode: External US Variability: Moderate 6-25 bpm Accelerations: 15X15 Decelerations: None Category: Category I Datetime: 04/07/2019 18:36 Labor Evaluation Frequency: 0 Monitor Mode: External Resting Tone [place]: Relaxed Contraction Comments: pt denies feeling contractions Heart Rate FHR Baseline Rate: 130 Monitor Mode: External US FHR Baseline Changes: No Baseline Change Variability: Moderate 6-25 bpm Accelerations: 15X15 Decelerations: None Category: Category I Datetime: 04/07/2019 18:12 Labor Evaluation Frequency: 0 Monitor Mode: External Resting Tone [place]: Relaxed Heart Rate FHR Baseline Rate: 130 Monitor Mode: External US FHR Baseline Changes: No Baseline Change Variability: Moderate 6-25 bpm Accelerations: 15X15 Decelerations: None Category: Category I Datetime: 04/07/2019 17:28 Labor Evaluation Frequency: 0 Monitor Mode: External Resting Tone [place]: Relaxed Heart Rate FHR Baseline Rate: 130 Monitor Mode: External US FHR Baseline Changes: No Baseline Change Variability: Moderate 6-25 bpm Accelerations: 15X15 Decelerations: None Category: Category I Datetime: 04/07/2019 16:39 Labor Evaluation Frequency: 0 Monitor Mode: External Resting Tone [place]: Relaxed Heart Rate FHR Baseline Rate: 130 Monitor Mode: External US FHR Baseline Changes: No Baseline Change Variability: Moderate 6-25 bpm Accelerations: 15X15 Decelerations: None Category: Category I Datetime: 04/07/2019 15:37 Labor Evaluation Frequency: 0 Monitor Mode: External Resting Tone [place]: Relaxed Heart Rate FHR Baseline Rate: 130 Monitor Mode: External US FHR Baseline Changes: No Baseline Change Variability: Moderate 6-25 bpm Accelerations: 15X15 Decelerations: None Category: Category I Datetime: 04/07/2019 15:19 Labor Evaluation Frequency: 0 Monitor Mode: External Resting Tone [place]: Relaxed Heart Rate FHR Baseline Rate: 130 Monitor Mode: External US FHR Baseline Changes: No Baseline Change Variability: Moderate 6-25 bpm Accelerations: 15X15 Decelerations: None Category: Category I Datetime: 04/07/2019 14:22 Maternal Assessment Level of Consciousness: Fully Conscious DTR's/Clonus: DTRs 1+ Headache: Denies Blurred Vision: No Nausea/Vomiting: Denies RUQ Epigastric Pain: Denies Facial Edema: None Datetime: 04/07/2019 12:37 Labor Evaluation Frequency: occasional irritability Monitor Mode: External Quality: Mild Resting Tone [place]: Relaxed Heart Rate FHR Baseline Rate: 120 Monitor Mode: External US FHR Baseline Changes: No Baseline Change Variability: Moderate 6-25 bpm Accelerations: 15X15 Decelerations: None Category: Category I Datetime: 04/07/2019 12:19 Pain Assessment Pain Scale: 7 Pain Type: Contraction Datetime: 04/07/2019 08:39 Assessment Type: Ongoing Assessment Maternal Assessment Level of Consciousness: Fully Conscious DTR's/Clonus: DTRs 2+; No Clonus Headache: Denies Blurred Vision: No Respiratory Effort: Unlabored; Regular Rhythm; Equal Expansion Breath Sounds, Left: Clear and Equal Breath Sounds, Right: Clear and Equal Nausea/Vomiting: Denies RUQ Epigastric Pain: Denies Facial Edema: None Fall Risk Assessment History of Falling: (0) No Secondary Diagnosis: (0) No Ambulatory Aid: (0) Bedrest/Nurse Assist IV Therapy: (20) Yes Gait: (0) Normal/Bedrest/Immobile Mental Status: (0) Oriented to Own Ability Fall Score: 20 Fall Risk Score Definition: No Risk: No action required Datetime: 04/07/2019 08:38 Pain Assessment Pain Scale: 5 Pain Location: Head Pain Goal: 0 Datetime: 04/07/2019 07:00 Stage of : Antepartum Labor Evaluation Frequency: x2 with irritability Monitor Mode: External Duration (sec)2399: 20-80 Quality: Mild Pattern: Normal: <= 5 Contractions in 10 Minutes Resting Tone [place]: Relaxed Heart Rate FHR Baseline Rate: 125 Monitor Mode: External US Variability: Moderate 6-25 bpm Accelerations: 15X15 Datetime: 04/07/2019 06:48 Stage of : Antepartum Datetime: 04/07/2019 06:00 Stage of : Antepartum Labor Evaluation Frequency: x2 with irritability Monitor Mode: External Duration (sec)2399: 20-110 Quality: Mild Pattern: Normal: <= 5 Contractions in 10 Minutes Resting Tone [place]: Relaxed Heart Rate FHR Baseline Rate: 125 Monitor Mode: External US Variability: Moderate 6-25 bpm Accelerations: 15X15 Decelerations: None Datetime: 04/07/2019 05:48 Stage of : Antepartum Datetime: 04/07/2019 05:25 Stage of : Antepartum Maternal Assessment Level of Consciousness: Fully Conscious DTR's/Clonus: DTRs 1+; No Clonus Headache: Occipital; Frontal Blurred Vision: No Breath Sounds, Left: Clear and Equal Breath Sounds, Right: Clear and Equal Nausea/Vomiting: Denies RUQ Epigastric Pain: Denies Lower Extremities Edema: None Degree: None Upper Extremities Edema: None (Annotations: Pt reports tightness in hands/fingers) Degree: None Facial Edema: None Pain Assessment Pain Scale: 7 Pain Presence: Constant Pain Type: Ache Pain Location: Head Pain Assessment Comments: BRYANT Datetime: 04/07/2019 05:00 Stage of : Antepartum Labor Evaluation Frequency: x3 with irritability Monitor Mode: External Duration (sec)2399: 20-130 Quality: Mild Pattern: Normal: <= 5 Contractions in 10 Minutes Resting Tone [place]: Relaxed Heart Rate FHR Baseline Rate: 120 Monitor Mode: External US Variability: Moderate 6-25 bpm Accelerations: 15X15 Decelerations: None Category: Category I Datetime: 04/07/2019 04:48 Stage of : Antepartum Datetime: 04/07/2019 04:00 Stage of : Antepartum Labor Evaluation Frequency: x1 with irritability Monitor Mode: External Duration (sec)2399: 20-110 Quality: Mild Pattern: Normal: <= 5 Contractions in 10 Minutes Resting Tone [place]: Relaxed Heart Rate FHR Baseline Rate: 115 Monitor Mode: External US Variability: Moderate 6-25 bpm Accelerations: 15X15 Decelerations: Variable (Annotations: possible x1) Datetime: 04/07/2019 03:48 Stage of : Antepartum Maternal Assessment Level of Consciousness: Fully Conscious DTR's/Clonus: DTRs 2+; No Clonus Headache: Denies Blurred Vision: No Breath Sounds, Left: Clear and Equal Breath Sounds, Right: Clear and Equal Nausea/Vomiting: Denies RUQ Epigastric Pain: Denies Lower Extremities Edema: None Degree: None Upper Extremities Edema: None Degree: None Facial Edema: None Temperature Route: Oral Datetime: 04/07/2019 03:00 Stage of : Antepartum Labor Evaluation Frequency: x3 with irritability Monitor Mode: External Duration (sec)2399: 20-110 Quality: Mild Pattern: Normal: <= 5 Contractions in 10 Minutes Resting Tone [place]: Relaxed Heart Rate FHR Baseline Rate: 120 Monitor Mode: External US FHR Baseline Changes: No Baseline Change Variability: Moderate 6-25 bpm Accelerations: 15X15 Decelerations: None Category: Category I Datetime: 04/07/2019 02:48 Stage of : Antepartum Datetime: 04/07/2019 02:00 Stage of : Antepartum Labor Evaluation Frequency: x2 with irritability Monitor Mode: External Duration (sec)2399: 20-110 Quality: Mild Pattern: Normal: <= 5 Contractions in 10 Minutes Resting Tone [place]: Relaxed Heart Rate FHR Baseline Rate: 120 Monitor Mode: External US FHR Baseline Changes: No Baseline Change Variability: Moderate 6-25 bpm Accelerations: 15X15 Decelerations: None Category: Category I Datetime: 04/07/2019 01:48 Stage of : Antepartum Datetime: 04/07/2019 01:30 Maternal Assessment Level of Consciousness: Fully Conscious DTR's/Clonus: DTRs 2+; No Clonus Headache: Denies Blurred Vision: No Breath Sounds, Left: Clear and Equal Breath Sounds, Right: Clear and Equal Nausea/Vomiting: Denies RUQ Epigastric Pain: Denies Lower Extremities Edema: None Degree: None Upper Extremities Edema: None Degree: None Facial Edema: None Datetime: 04/07/2019 01:00 Stage of : Antepartum Labor Evaluation Frequency: Irritability Monitor Mode: External Duration (sec)2399: 20-50 Quality: Mild Pattern: Normal: <= 5 Contractions in 10 Minutes Resting Tone [place]: Relaxed Heart Rate FHR Baseline Rate: 120 Monitor Mode: External US Variability: Moderate 6-25 bpm Accelerations: 15X15 Decelerations: None Datetime: 04/07/2019 00:00 Stage of : Antepartum Labor Evaluation Frequency: x3 with irritability Monitor Mode: External Duration (sec)2399: 20-70 Quality: Mild Pattern: Normal: <= 5 Contractions in 10 Minutes Resting Tone [place]: Relaxed Heart Rate FHR Baseline Rate: 130 Monitor Mode: External US Variability: Moderate 6-25 bpm Accelerations: 15X15 Decelerations: None Datetime: 04/06/2019 23:48 Stage of : Antepartum Datetime: 04/06/2019 23:00 Stage of : Antepartum Labor Evaluation Frequency: x1 with irritability Monitor Mode: External Duration (sec)2399: 20-90 Quality: Mild Pattern: Normal: <= 5 Contractions in 10 Minutes Resting Tone [place]: Relaxed Heart Rate FHR Baseline Rate: 125 Monitor Mode: External US FHR Baseline Changes: No Baseline Change Variability: Moderate 6-25 bpm Accelerations: 15X15 Decelerations: None Category: Category I Datetime: 04/06/2019 22:51 Stage of : Antepartum Maternal Assessment Level of Consciousness: Fully Conscious DTR's/Clonus: DTRs 2+; No Clonus Headache: Denies Blurred Vision: No Breath Sounds, Left: Clear and Equal Breath Sounds, Right: Clear and Equal Nausea/Vomiting: Denies RUQ Epigastric Pain: Denies Lower Extremities Edema: None Degree: None Upper Extremities Edema: None Degree: None Facial Edema: None Temperature Route: Oral Pain Assessment Pain Scale: 3 Pain Presence: Intermittent Pain Type: Cramping Pain Location: Abdomen; Back Pain Relief Measures: Comfort Measures Datetime: 04/06/2019 22:00 Stage of : Antepartum Labor Evaluation Frequency: x1 with irritability Monitor Mode: External Duration (sec)2399: 20-90 Quality: Mild Pattern: Normal: <= 5 Contractions in 10 Minutes Resting Tone [place]: Relaxed Heart Rate FHR Baseline Rate: 125 Monitor Mode: External US FHR Baseline Changes: No Baseline Change Variability: Moderate 6-25 bpm Accelerations: 15X15 Decelerations: None Category: Category I Datetime: 04/06/2019 21:46 Stage of : Antepartum Maternal Assessment Level of Consciousness: Fully Conscious DTR's/Clonus: DTRs 2+; No Clonus Headache: Denies Blurred Vision: No Breath Sounds, Left: Clear and Equal Breath Sounds, Right: Clear and Equal Nausea/Vomiting: Denies RUQ Epigastric Pain: Denies Lower Extremities Edema: None Degree: None Upper Extremities Edema: None Degree: None Facial Edema: None Datetime: 04/06/2019 21:00 Stage of : Antepartum Labor Evaluation Frequency: x2 with irritability Monitor Mode: External Duration (sec)2399: 20-70 Quality: Mild Pattern: Normal: <= 5 Contractions in 10 Minutes Resting Tone [place]: Relaxed Heart Rate FHR Baseline Rate: 125 Monitor Mode: External US Variability: Moderate 6-25 bpm Accelerations: 15X15 Decelerations: None Category: Category I Datetime: 04/06/2019 20:18 Stage of : Antepartum Pain Assessment Pain Scale: 7 Pain Presence: Constant Pain Type: Ache Pain Location: Head Pain Relief Measures: Pain Medication Given Pain Assessment Comments: Tylenol given PO for BRYANT pain Datetime: 04/06/2019 20:00 Stage of : Antepartum Labor Evaluation Frequency: None Monitor Mode: Palpation Resting Tone [place]: Relaxed Heart Rate FHR Baseline Rate: 130 Monitor Mode: External US Variability: Moderate 6-25 bpm Accelerations: 15X15 Decelerations: None Category: Category I Datetime: 04/06/2019 19:42 Stage of : Antepartum Assessment Type: Ongoing Assessment Maternal Assessment Level of Consciousness: Fully Conscious DTR's/Clonus: DTRs 2+; No Clonus Headache: Occipital; Frontal Blurred Vision: No Respiratory Effort: Unlabored; Regular Rhythm; Equal Expansion Breath Sounds, Left: Clear and Equal Breath Sounds, Right: Clear and Equal Nausea/Vomiting: Denies RUQ Epigastric Pain: Denies Lower Extremities Edema: None Degree: None Upper Extremities Edema: None Degree: None Facial Edema: None Temperature Route: Oral Fall Risk Assessment History of Falling: (0) No Secondary Diagnosis: (0) No Ambulatory Aid: (0) Bedrest/Nurse Assist IV Therapy: (0) No Gait: (0) Normal/Bedrest/Immobile Mental Status: (0) Oriented to Own Ability Fall Score: 0 Fall Risk Score Definition: No Risk: No action required Pain Assessment Pain Scale: 7 Pain Presence: Intermittent Pain Type: Cramping Pain Location: Abdomen; Back Pain Relief Measures: Comfort Measures Pain Assessment Comments: Pt reports uc pain [id number] Datetime: 04/06/2019 19:40 Monitor Mode: Palpation Resting Tone [place]: Relaxed Datetime: 04/06/2019 19:05 Stage of : Antepartum Pain Assessment Pain Scale: 0 Pain Presence: None/Denies Pain Type: N/A Datetime: 04/06/2019 19:00 Stage of : Antepartum Labor Evaluation Frequency: irritability Monitor Mode: External Quality: Mild Pattern: Normal: <= 5 Contractions in 10 Minutes Resting Tone [place]: Relaxed Heart Rate FHR Baseline Rate: 125 Monitor Mode: External US FHR Baseline Changes: No Baseline Change Variability: Moderate 6-25 bpm Accelerations: 15X15 Decelerations: None Datetime: 04/06/2019 17:58 Labor Evaluation Frequency: irritability Monitor Mode: External Quality: Mild Pattern: Normal: <= 5 Contractions in 10 Minutes Resting Tone [place]: Relaxed Heart Rate FHR Baseline Rate: 125 Monitor Mode: External US FHR Baseline Changes: No Baseline Change Variability: Moderate 6-25 bpm Accelerations: 15X15 Decelerations: None Datetime: 04/06/2019 17:00 Stage of : Antepartum Labor Evaluation Frequency: x2 Monitor Mode: External Duration (sec)2399: 60 Quality: Mild Pattern: Normal: <= 5 Contractions in 10 Minutes Resting Tone [place]: Relaxed Heart Rate FHR Baseline Rate: 125 Monitor Mode: External US FHR Baseline Changes: No Baseline Change Variability: Moderate 6-25 bpm Accelerations: 15X15 Decelerations: None Pain Assessment Pain Scale: 2 Pain Presence: Constant Pain Type: Dull Pain Location: Head Pain Relief Measures: Comfort Measures Datetime: 04/06/2019 16:00 Labor Evaluation Frequency: x2 Monitor Mode: External Duration (sec)2399: 50-70 Quality: Mild Pattern: Normal: <= 5 Contractions in 10 Minutes Resting Tone [place]: Relaxed Heart Rate FHR Baseline Rate: 120 Monitor Mode: External US FHR Baseline Changes: No Baseline Change Variability: Moderate 6-25 bpm Accelerations: 15X15 Decelerations: None Datetime: 04/06/2019 15:15 Stage of : Antepartum Pain Assessment Pain Scale: 8 Pain Presence: Constant Pain Type: Ache Pain Location: Head Pain Relief Measures: Pain Medication Given Datetime: 04/06/2019 15:00 Labor Evaluation Frequency: Irritability Monitor Mode: External Quality: Mild Pattern: Normal: <= 5 Contractions in 10 Minutes Resting Tone [place]: Relaxed Heart Rate FHR Baseline Rate: 120 FHR Baseline Changes: No Baseline Change Variability: Minimal - Undetectable to <=5 bpm Accelerations: 15X15 Decelerations: None Datetime: 04/06/2019 14:00 Labor Evaluation Frequency: x5 Monitor Mode: External Duration (sec)2399: 50-70 Quality: Mild Pattern: Normal: <= 5 Contractions in 10 Minutes Resting Tone [place]: Relaxed Heart Rate FHR Baseline Rate: 125 Monitor Mode: External US FHR Baseline Changes: No Baseline Change Variability: Moderate 6-25 bpm Accelerations: 15X15 Decelerations: None Datetime: 04/06/2019 13:00 Labor Evaluation Frequency: X4 WITH IRRITABILITY Monitor Mode: External Duration (sec)2399: 50-70 Quality: Mild Pattern: Normal: <= 5 Contractions in 10 Minutes Resting Tone [place]: Relaxed Heart Rate FHR Baseline Rate: 120 FHR Baseline Changes: No Baseline Change Variability: Moderate 6-25 bpm Accelerations: 15X15 Decelerations: None Datetime: 04/06/2019 12:53 Stage of : Antepartum Pain Assessment Pain Scale: 6 Pain Presence: Intermittent Pain Type: Contraction Pain Location: Abdomen Pain Relief Measures: Comfort Measures Datetime: 04/06/2019 12:00 Maternal Assessment Level of Consciousness: Fully Conscious DTR's/Clonus: DTRs 2+; No Clonus Headache: Frontal Breath Sounds, Left: Clear and Equal Breath Sounds, Right: Clear and Equal Nausea/Vomiting: Denies RUQ Epigastric Pain: Denies Datetime: 04/06/2019 11:59 Labor Evaluation Frequency: x3 Monitor Mode: External Duration (sec)2399: 50-60 Quality: Mild Pattern: Normal: <= 5 Contractions in 10 Minutes Resting Tone [place]: Relaxed Heart Rate FHR Baseline Rate: 120 Monitor Mode: External US FHR Baseline Changes: No Baseline Change Variability: Moderate 6-25 bpm Accelerations: 15X15 Decelerations: None Datetime: 04/06/2019 11:00 Stage of : Antepartum Labor Evaluation Frequency: x3 Monitor Mode: External Duration (sec)2399: 50-60 Quality: Mild Pattern: Normal: <= 5 Contractions in 10 Minutes Resting Tone [place]: Relaxed Heart Rate FHR Baseline Rate: 120 FHR Baseline Changes: No Baseline Change Variability: Moderate 6-25 bpm Accelerations: 15X15 Decelerations: None Pain Assessment Pain Scale: 3 Pain Presence: Constant Pain Type: Ache Pain Location: Head Pain Relief Measures: Comfort Measures Datetime: 04/06/2019 10:00 Maternal Assessment Level of Consciousness: Fully Conscious DTR's/Clonus: DTRs 2+; No Clonus Headache: Frontal Breath Sounds, Left: Clear and Equal Breath Sounds, Right: Clear and Equal Nausea/Vomiting: Denies RUQ Epigastric Pain: Denies Labor Evaluation Frequency: x1, irritability Monitor Mode: External Duration (sec)2399: 60 Quality: Mild Pattern: Normal: <= 5 Contractions in 10 Minutes Resting Tone [place]: Relaxed Heart Rate FHR Baseline Rate: 120 FHR Baseline Changes: No Baseline Change Variability: Moderate 6-25 bpm Accelerations: 15X15 Decelerations: None Datetime: 04/06/2019 09:00 Stage of : Antepartum Pain Assessment Pain Scale: 3 Pain Presence: Constant Pain Type: Ache Pain Location: Head Pain Relief Measures: Comfort Measures Datetime: 04/06/2019 08:59 Labor Evaluation Frequency: irritability Monitor Mode: External Quality: Mild Pattern: Normal: <= 5 Contractions in 10 Minutes Resting Tone [place]: Relaxed Heart Rate FHR Baseline Rate: 130 FHR Baseline Changes: No Baseline Change Variability: Moderate 6-25 bpm Accelerations: 15X15 Decelerations: None Datetime: 04/06/2019 08:01 Labor Evaluation Frequency: x2 Monitor Mode: External Duration (sec)2399: 60-90 Quality: Mild Pattern: Normal: <= 5 Contractions in 10 Minutes Resting Tone [place]: Relaxed Heart Rate FHR Baseline Rate: 120 Monitor Mode: External US FHR Baseline Changes: No Baseline Change Variability: Moderate 6-25 bpm Accelerations: Prolonged Decelerations: None Datetime: 04/06/2019 08:00 Assessment Type: Ongoing Assessment Maternal Assessment Level of Consciousness: Fully Conscious DTR's/Clonus: DTRs 2+; No Clonus Headache: Frontal Blurred Vision: No Respiratory Effort: Unlabored; Regular Rhythm Breath Sounds, Left: Clear and Equal Breath Sounds, Right: Clear and Equal Nausea/Vomiting: Denies RUQ Epigastric Pain: Denies Lower Extremities Edema: None Degree: None Upper Extremities Edema: None Degree: None Facial Edema: None Fall Risk Assessment History of Falling: (0) No Secondary Diagnosis: (0) No Ambulatory Aid: (0) Bedrest/Nurse Assist IV Therapy: (20) Yes Gait: (0) Normal/Bedrest/Immobile Mental Status: (0) Oriented to Own Ability Fall Score: 20 Fall Risk Score Definition: No Risk: No action required Datetime: 04/06/2019 07:58 Stage of : Antepartum Pain Assessment Pain Scale: 7 Pain Presence: Constant Pain Type: Ache Pain Location: Head Pain Relief Measures: Pain Medication Given Datetime: 04/06/2019 07:44 Comments: RN at bedside. Audible FHR, gross movement. Datetime: 04/06/2019 06:12 Stage of : Antepartum Maternal Assessment Level of Consciousness: Fully Conscious Headache: Frontal Breath Sounds, Left: Clear and Equal Breath Sounds, Right: Clear and Equal Nausea/Vomiting: Denies RUQ Epigastric Pain: Denies Labor Evaluation Frequency: x2 _ IRRITABILITY Monitor Mode: External Duration (sec)2399: 30-60 Irritability _ UC's Quality: Mild Resting Tone [place]: Relaxed Heart Rate FHR Baseline Rate: 125 Monitor Mode: External US Variability: Moderate 6-25 bpm Accelerations: 15X15 Decelerations: None Pain Assessment Pain Scale: 3 Pain Location: Head Pain Goal: 0 Pain Relief Measures: Comfort Measures Datetime: 04/06/2019 05:12 Stage of : Antepartum Maternal Assessment Level of Consciousness: Fully Conscious DTR's/Clonus: DTRs 2+; No Clonus Headache: Frontal Breath Sounds, Left: Clear and Equal Breath Sounds, Right: Clear and Equal Nausea/Vomiting: Denies RUQ Epigastric Pain: Denies Labor Evaluation Frequency: x4 _ IRRITABILITY Monitor Mode: External Duration (sec)2399: 40-70 Irritability _ UC's Quality: Mild Resting Tone [place]: Relaxed Heart Rate FHR Baseline Rate: 125 Monitor Mode: External US Variability: Moderate 6-25 bpm Accelerations: 15X15 Decelerations: None Pain Assessment Pain Scale: 3 Pain Location: Head Pain Goal: 0 Pain Relief Measures: Comfort Measures Datetime: 04/06/2019 04:42 Stage of : Antepartum Datetime: 04/06/2019 04:12 Stage of : Antepartum Maternal Assessment Level of Consciousness: Fully Conscious DTR's/Clonus: DTRs 2+; No Clonus Headache: Frontal Breath Sounds, Left: Clear and Equal Breath Sounds, Right: Clear and Equal Nausea/Vomiting: Denies RUQ Epigastric Pain: Denies Temperature Route: Oral Labor Evaluation Frequency: x1 _ IRRITABILITY Monitor Mode: External Duration (sec)2399: 40-70 Irritability UC 130 sec Quality: Mild Resting Tone [place]: Relaxed Heart Rate FHR Baseline Rate: 125 Monitor Mode: External US Variability: Moderate 6-25 bpm Accelerations: 15X15 Decelerations: None Pain Assessment Pain Scale: 3 Pain Location: Head Pain Goal: 0 Pain Relief Measures: Comfort Measures (Annotations: Offered Tylenol, Pt refused for Headache) Datetime: 04/06/2019 03:13 Stage of : Antepartum Maternal Assessment Level of Consciousness: Fully Conscious DTR's/Clonus: DTRs 2+; No Clonus Headache: Frontal Breath Sounds, Left: Clear and Equal Breath Sounds, Right: Clear and Equal Nausea/Vomiting: Denies RUQ Epigastric Pain: Denies Labor Evaluation Frequency: x1 _ IRRITABILITY Monitor Mode: External Duration (sec)2399: 40-70 Irritability UC 130 sec Quality: Mild Resting Tone [place]: Relaxed Heart Rate FHR Baseline Rate: 125 Monitor Mode: External US Variability: Moderate 6-25 bpm Accelerations: 15X15 Decelerations: None Pain Assessment Pain Scale: 3 Pain Location: Head Pain Goal: 0 Pain Relief Measures: Comfort Measures Datetime: 04/06/2019 02:12 Stage of : Antepartum Labor Evaluation Frequency: IRRITABILITY Monitor Mode: External Duration (sec)2399: 40-70 Quality: Mild Resting Tone [place]: Relaxed Heart Rate FHR Baseline Rate: 135 Monitor Mode: External US Variability: Moderate 6-25 bpm Accelerations: 15X15 Decelerations: None Datetime: 04/06/2019 01:58 Assessment Type: Admission Assessment Vaginal Bleeding: None Maternal Assessment Level of Consciousness: Fully Conscious DTR's/Clonus: DTRs 2+; No Clonus Headache: Denies Blurred Vision: No Respiratory Effort: Unlabored; Regular Rhythm; Equal Expansion Breath Sounds, Left: Clear and Equal Breath Sounds, Right: Clear and Equal Nausea/Vomiting: Denies RUQ Epigastric Pain: Denies Facial Edema: None Fall Risk Assessment History of Falling: (0) No Secondary Diagnosis: (0) No Ambulatory Aid: (0) Bedrest/Nurse Assist IV Therapy: (0) No Gait: (0) Normal/Bedrest/Immobile Mental Status: (0) Oriented to Own Ability Fall Score: 0 Fall Risk Score Definition: No Risk: No action required Datetime: 04/06/2019 01:41 Stage of : Antepartum Labor Evaluation Frequency: IRRITABILITY Monitor Mode: External Duration (sec)2399: 40-70 Quality: Mild Resting Tone [place]: Relaxed Heart Rate FHR Baseline Rate: 135 Monitor Mode: External US Variability: Moderate 6-25 bpm Accelerations: 15X15 Decelerations: None Datetime: 04/06/2019 01:39 Stage of : Antepartum Datetime: 04/06/2019 01:11 Stage of : Antepartum Labor Evaluation Frequency: IRRITABILITY Monitor Mode: External Duration (sec)2399: 40-70 Quality: Mild Resting Tone [place]: Relaxed Heart Rate FHR Baseline Rate: 135 Monitor Mode: External US Variability: Moderate 6-25 bpm Accelerations: 15X15 Decelerations: None Datetime: 04/06/2019 01:07 Stage of : Antepartum Datetime: 04/06/2019 00:52 Labor Evaluation Frequency: IRRITABILITY Monitor Mode: External Duration (sec)2399: 40-70 Quality: Mild Resting Tone [place]: Relaxed Heart Rate FHR Baseline Rate: 135 Monitor Mode: External US Variability: Moderate 6-25 bpm Accelerations: 15X15 Decelerations: None Category: Category I Datetime: 04/06/2019 00:00 Labor Evaluation Frequency: IRRITABILITY Monitor Mode: External Duration (sec)2399: 30-50 Quality: Mild Resting Tone [place]: Relaxed Heart Rate FHR Baseline Rate: 135 Monitor Mode: External US Variability: Moderate 6-25 bpm Accelerations: 15X15 Decelerations: None Datetime: 04/05/2019 23:00 Labor Evaluation Frequency: 2.5-4 Monitor Mode: External Duration (sec)2399: 50-70 Quality: Mild Resting Tone [place]: Relaxed Heart Rate FHR Baseline Rate: 125 Monitor Mode: External US Variability: Moderate 6-25 bpm Accelerations: 15X15 Decelerations: None Category: Category I Datetime: 04/05/2019 22:00 Labor Evaluation Frequency: 2.5-5 Monitor Mode: External Duration (sec)2399: 50-80 Quality: Mild Resting Tone [place]: Relaxed Heart Rate FHR Baseline Rate: 135 Monitor Mode: External US Variability: Moderate 6-25 bpm Accelerations: 15X15 Decelerations: None Category: Category I Datetime: 04/05/2019 21:12 Stage of : OB Triage Assessment Type: Triage Maternal Assessment Level of Consciousness: Fully Conscious DTR's/Clonus: DTRs 2+; No Clonus Headache: Denies Blurred Vision: No Respiratory Effort: Unlabored; Regular Rhythm; Equal Expansion Breath Sounds, Left: Clear and Equal Breath Sounds, Right: Clear and Equal Nausea/Vomiting: Denies RUQ Epigastric Pain: Denies Lower Extremities Edema: None Degree: None Upper Extremities Edema: None Degree: None Facial Edema: None Temperature Route: Oral Fall Risk Assessment History of Falling: (0) No Secondary Diagnosis: (0) No Ambulatory Aid: (0) Bedrest/Nurse Assist IV Therapy: (0) No Gait: (0) Normal/Bedrest/Immobile Mental Status: (0) Oriented to Own Ability Fall Score: 0 Fall Risk Score Definition: No Risk: No action required Pain Assessment Pain Scale: 7 Pain Presence: Intermittent Pain Type: Contraction Pain Location: Abdomen Pain Goal: 3 Datetime: 04/05/2019 21:07 Contraction Comments: TOCO APPLIED Comments: US APPLIED Datetime: 04/05/2019 21:02 Time of Arrival: 04/05/2019 20:50 EGA: 33.6 Arrived By: Wheelchair Arrived From: Emergency Dept Chief Complaint: PT PRESENTS TO TRIAGE WITH C/O UC'S Movement: Present Contractions: Regular Rupture of Membranes: Denies Vaginal Bleeding: None Vaginal Discharge: Denies Recent Sexual Intercouse: Denies Abdominal Trauma: Not Applicable Patient Complaints: Contractions Initial Plan: EFM Datetime: 03/28/2019 15:05 Comments: D/c instructions given to pt and pt's partner. She was given the perinatologist office shazia ramirez and was instructed to call Saturday to make an appointment ask instructed by Dr. Andrew. All ques tions were answered. Pt verbalized understanding. Datetime: 03/28/2019 13:20 Comments: Dr. Andrew was informed of BPP results of 06/18 with LUIS of 14.1. Cervical lenght 3.35. N ew order to send pt home and give her the perinatologist phone number for her to make an appointment to be seen by her for labor. Datetime: 03/28/2019 12:02 Comments: Ultrasound in progress Datetime: 03/28/2019 11:56 Maternal Assessment Level of Consciousness: Fully Conscious Headache: Denies Blurred Vision: No Nausea/Vomiting: Denies RUQ Epigastric Pain: Denies Facial Edema: None Labor Evaluation Frequency: x4 Monitor Mode: External Duration (sec)2399: 40-100 Quality: Mild Pattern: Normal: <= 5 Contractions in 10 Minutes Resting Tone [place]: Relaxed Heart Rate FHR Baseline Rate: 135 Monitor Mode: External US FHR Baseline Changes: No Baseline Change Variability: Moderate 6-25 bpm Accelerations: 15X15 Decelerations: None Category: Category I Pain Assessment Pain Scale: 0 Pain Presence: None/Denies Pain Type: N/A Pain Goal: 3 Vaginal Exam Membrane Status: Intact Datetime: 03/28/2019 11:05 Comments: Dr. Andrew called with a new order to send pt home after repeat of cervical lenght and a bpp is done. Call MD with results. Datetime: 03/28/2019 10:45 Stage of : Antepartum Temperature Route: Oral Datetime: 03/28/2019 10:43 Comments: Pt placed on monitor for NST Datetime: 03/28/2019 08:26 Comments: Dr. Andrew at bedside to review strip and assess pt. New order for NST Qshift. Dr. Huynh at will talk to Dr. Huff regarding pt's request to go home. Datetime: 03/28/2019 08:00 Assessment Type: Ongoing Assessment Maternal Assessment Level of Consciousness: Fully Conscious DTR's/Clonus: DTRs 2+; No Clonus Headache: Denies Blurred Vision: No Respiratory Effort: Unlabored; Regular Rhythm; Equal Expansion Breath Sounds, Left: Clear and Equal Breath Sounds, Right: Clear and Equal Nausea/Vomiting: Denies RUQ Epigastric Pain: Denies Facial Edema: None Fall Risk Assessment History of Falling: (0) No Secondary Diagnosis: (0) No Ambulatory Aid: (0) Bedrest/Nurse Assist IV Therapy: (0) No Gait: (0) Normal/Bedrest/Immobile Mental Status: (0) Oriented to Own Ability Fall Score: 0 Fall Risk Score Definition: No Risk: No action required Labor Evaluation Frequency: x5 Monitor Mode: External Duration (sec)2399: 40-90 Quality: Mild Pattern: Normal: <= 5 Contractions in 10 Minutes Resting Tone [place]: Relaxed Heart Rate FHR Baseline Rate: 135 Monitor Mode: External US FHR Baseline Changes: No Baseline Change Variability: Moderate 6-25 bpm Accelerations: 15X15 Decelerations: None Category: Category I Pain Assessment Pain Scale: 0 Pain Presence: None/Denies Pain Type: N/A Pain Goal: 3 Datetime: 03/28/2019 07:14 Stage of : Antepartum Temperature Route: Oral Monitor Mode: External Pain Assessment Pain Scale: 0 Pain Presence: None/Denies Pain Type: N/A Pain Goal: 3 Datetime: 03/28/2019 07:10 Stage of : Antepartum Datetime: 03/28/2019 05:27 Stage of : Antepartum Monitor Mode: External Contraction Comments: PT DENIES CRAMPING Monitor Mode: External US Comments: PT STATES + FM Pain Presence: None/Denies Pain Type: N/A Vaginal Exam Membrane Status: Intact Vaginal Bleeding: None Datetime: 03/28/2019 04:00 Labor Evaluation Frequency: NONE Monitor Mode: External Resting Tone [place]: Relaxed Heart Rate FHR Baseline Rate: 130 Monitor Mode: External US Variability: Moderate 6-25 bpm Accelerations: 15X15 Decelerations: None Category: Category I Pain Assessment Comments: PT SLEEPING WITH EVEN UNLABORED BREATHING Datetime: 03/28/2019 03:00 Labor Evaluation Frequency: X4 Monitor Mode: External Duration (sec)2399: 60-80 Quality: Mild Resting Tone [place]: Relaxed Heart Rate FHR Baseline Rate: 120 Monitor Mode: External US Variability: Moderate 6-25 bpm Accelerations: 15X15 Decelerations: None Category: Category I Pain Presence: None/Denies Pain Type: N/A Pain Assessment Comments: PT SLEEPING WITH EVEN UNLABORED BREATHING, Datetime: 03/28/2019 02:00 Labor Evaluation Frequency: X6 Monitor Mode: External Duration (sec)2399: 40-70 Quality: Mild Resting Tone [place]: Relaxed Heart Rate FHR Baseline Rate: 120 Monitor Mode: External US Variability: Moderate 6-25 bpm Accelerations: 15X15 Decelerations: None Category: Category I Pain Presence: None/Denies Pain Type: N/A Pain Assessment Comments: PT SLEEPING BUT EASILY AROUSED Datetime: 03/28/2019 01:00 Stage of : Antepartum Labor Evaluation Frequency: x4 Monitor Mode: External Duration (sec)2399: 60-80 Quality: Mild Resting Tone [place]: Relaxed Heart Rate FHR Baseline Rate: 120 Monitor Mode: External US Variability: Moderate 6-25 bpm Accelerations: 15X15 Decelerations: None Category: Category I Pain Presence: None/Denies Pain Type: N/A Datetime: 03/28/2019 00:00 Labor Evaluation Frequency: X1 Monitor Mode: External Duration (sec)2399: 50 Quality: Mild Resting Tone [place]: Relaxed Heart Rate FHR Baseline Rate: 125 Monitor Mode: External US Variability: Moderate 6-25 bpm Accelerations: 15X15 Decelerations: None Category: Category I Pain Presence: None/Denies Pain Type: N/A Datetime: 03/27/2019 23:00 Labor Evaluation Frequency: NONE Monitor Mode: External Resting Tone [place]: Relaxed Heart Rate FHR Baseline Rate: 135 Pain Presence: None/Denies Pain Type: N/A Datetime: 03/27/2019 21:57 Stage of : Antepartum Labor Evaluation Frequency: NONE Monitor Mode: External Resting Tone [place]: Relaxed Heart Rate FHR Baseline Rate: 135 Monitor Mode: External US Variability: Moderate 6-25 bpm Accelerations: None Decelerations: None Category: Category I Pain Presence: None/Denies Pain Type: N/A Datetime: 03/27/2019 21:37 Stage of : Antepartum Temperature Route: Oral Datetime: 03/27/2019 21:35 Stage of : Antepartum Datetime: 03/27/2019 21:25 Stage of : Antepartum Datetime: 03/27/2019 21:00 Labor Evaluation Frequency: NONE Monitor Mode: External Resting Tone [place]: Relaxed Monitor Mode: External US Variability: Moderate 6-25 bpm Accelerations: 15X15 Decelerations: None Category: Category I Pain Presence: None/Denies Pain Type: N/A Datetime: 03/27/2019 20:00 Labor Evaluation Frequency: NONE Monitor Mode: External Resting Tone [place]: Relaxed Heart Rate FHR Baseline Rate: 145 Monitor Mode: External US Variability: Moderate 6-25 bpm Accelerations: 15X15 Decelerations: None Category: Category I Pain Presence: None/Denies Pain Type: N/A Datetime: 03/27/2019 19:28 Stage of : Antepartum Assessment Type: Ongoing Assessment Maternal Assessment Level of Consciousness: Fully Conscious DTR's/Clonus: DTRs 2+; No Clonus Headache: Denies Blurred Vision: No Respiratory Effort: Unlabored; Regular Rhythm; Equal Expansion Breath Sounds, Left: Clear and Equal Breath Sounds, Right: Clear and Equal Nausea/Vomiting: Denies RUQ Epigastric Pain: Denies Lower Extremities Edema: None Degree: None Upper Extremities Edema: None Degree: None Facial Edema: None Temperature Route: Oral Fall Risk Assessment History of Falling: (0) No Secondary Diagnosis: (0) No Ambulatory Aid: (0) Bedrest/Nurse Assist IV Therapy: (0) No Gait: (0) Normal/Bedrest/Immobile Mental Status: (0) Oriented to Own Ability Fall Score: 0 Fall Risk Score Definition: No Risk: No action required Monitor Mode: External Contraction Comments: PT DENIES CRAMPING Monitor Mode: External US Comments: PT STATES + FM Pain Presence: None/Denies Pain Type: N/A Vaginal Exam Membrane Status: Intact Vaginal Bleeding: None Datetime: 03/27/2019 18:23 Pain Presence: None/Denies Datetime: 03/27/2019 17:01 Stage of : Antepartum Labor Evaluation Frequency: 0/hr Monitor Mode: External Heart Rate FHR Baseline Rate: 145 Monitor Mode: External US Variability: Moderate 6-25 bpm Accelerations: 15X15 Decelerations: None Datetime: 03/27/2019 16:19 Stage of : Antepartum Maternal Assessment Level of Consciousness: Fully Conscious Headache: Denies Nausea/Vomiting: Denies RUQ Epigastric Pain: Denies Temperature Route: Oral Resting Tone [place]: Relaxed Pain Assessment Pain Scale: 0 Pain Presence: None/Denies Vaginal Exam Membrane Status: Intact Vaginal Bleeding: None Datetime: 03/27/2019 16:18 Monitor Mode: External Resting Tone [place]: Relaxed Monitor Mode: External US Pain Presence: None/Denies Datetime: 03/27/2019 16:10 Stage of : Antepartum Labor Evaluation Frequency: 0/hr Monitor Mode: External Heart Rate FHR Baseline Rate: 140 Monitor Mode: External US Variability: Moderate 6-25 bpm Accelerations: 15X15 Decelerations: None Datetime: 03/27/2019 15:01 Labor Evaluation Frequency: 0/hr Monitor Mode: External Heart Rate FHR Baseline Rate: 145 Monitor Mode: External US Variability: Moderate 6-25 bpm Accelerations: 15X15 Decelerations: None Datetime: 03/27/2019 14:19 Maternal Assessment Level of Consciousness: Fully Conscious Headache: Denies Blurred Vision: No Respiratory Effort: Unlabored Nausea/Vomiting: Denies RUQ Epigastric Pain: Denies Monitor Mode: External Resting Tone [place]: Relaxed Monitor Mode: External US Pain Presence: None/Denies Datetime: 03/27/2019 13:41 Pain Presence: None/Denies Datetime: 03/27/2019 13:31 Labor Evaluation Frequency: 0/hr Monitor Mode: External Resting Tone [place]: Relaxed Heart Rate FHR Baseline Rate: 135 Monitor Mode: External US Variability: Moderate 6-25 bpm Accelerations: 15X15 Decelerations: None Datetime: 03/27/2019 13:11 Maternal Assessment Level of Consciousness: Fully Conscious Headache: Denies Blurred Vision: No Respiratory Effort: Unlabored Nausea/Vomiting: Denies RUQ Epigastric Pain: Denies Monitor Mode: External Resting Tone [place]: Relaxed Monitor Mode: External US Pain Presence: None/Denies Datetime: 03/27/2019 11:00 Stage of : Antepartum Labor Evaluation Frequency: 0/hr Monitor Mode: External Heart Rate FHR Baseline Rate: 135 Monitor Mode: External US Variability: Moderate 6-25 bpm Accelerations: 15X15 Decelerations: None Datetime: 03/27/2019 10:52 Stage of : Antepartum Maternal Assessment Level of Consciousness: Fully Conscious Headache: Denies Blurred Vision: No Respiratory Effort: Unlabored Nausea/Vomiting: Denies RUQ Epigastric Pain: Denies Pain Presence: None/Denies Datetime: 03/27/2019 10:02 Maternal Assessment Level of Consciousness: Fully Conscious Nausea/Vomiting: Denies RUQ Epigastric Pain: Present Labor Evaluation Frequency: 0/hr Monitor Mode: External Resting Tone [place]: Relaxed Heart Rate FHR Baseline Rate: 130 Monitor Mode: External US Variability: Moderate 6-25 bpm Accelerations: 15X15 Decelerations: None Pain Type: Burning Pain Relief Measures: Comfort Measures Datetime: 03/27/2019 09:00 Stage of : Antepartum Maternal Assessment Level of Consciousness: Fully Conscious Headache: Denies Nausea/Vomiting: Denies RUQ Epigastric Pain: Denies Labor Evaluation Frequency: 0/hr Monitor Mode: External Heart Rate FHR Baseline Rate: 135 Monitor Mode: External US Variability: Moderate 6-25 bpm Accelerations: 15X15 Decelerations: None Pain Assessment Pain Scale: 0 Datetime: 03/27/2019 08:02 Stage of : Antepartum Assessment Type: Ongoing Assessment Maternal Assessment Level of Consciousness: Fully Conscious Maternal Assessment Level of Consciousness: Fully Conscious DTR's/Clonus: DTRs 2+; No Clonus Headache: Denies Headache: Denies Blurred Vision: No Blurred Vision: No Respiratory Effort: Unlabored; Regular Rhythm; Equal Expansion Respiratory Effort: Unlabored Breath Sounds, Left: Clear and Equal Breath Sounds, Left: Clear and Equal Breath Sounds, Right: Clear and Equal Breath Sounds, Right: Clear and Equal Nausea/Vomiting: Denies Nausea/Vomiting: Denies RUQ Epigastric Pain: Denies RUQ Epigastric Pain: Denies Lower Extremities Edema: None Degree: None Upper Extremities Edema: None Degree: None Facial Edema: None Temperature Route: Oral Fall Risk Assessment History of Falling: (0) No Secondary Diagnosis: (0) No Ambulatory Aid: (0) Bedrest/Nurse Assist IV Therapy: (20) Yes Gait: (0) Normal/Bedrest/Immobile Mental Status: (0) Oriented to Own Ability Fall Score: 20 Fall Risk Score Definition: No Risk: No action required Labor Evaluation Frequency: 0/hr Monitor Mode: External Heart Rate FHR Baseline Rate: 135 Monitor Mode: External US Variability: Moderate 6-25 bpm Accelerations: 15X15 Decelerations: None Pain Assessment Pain Scale: 0 Pain Presence: None/Denies Vaginal Exam Membrane Status: Intact (Annotations: at this time pt. denies srom or lof) Vaginal Bleeding: None (Annotations: pt. denies at this time) Datetime: 03/27/2019 07:12 Stage of : Antepartum Pain Presence: None/Denies Datetime: 03/27/2019 06:30 Stage of : Antepartum Pain Assessment Pain Scale: 3 Pain Presence: Constant Pain Type: Cramping Pain Goal: 2 Pain Relief Measures: Comfort Measures Pain Assessment Comments: PT STATES SHE ALSO FEELS A LITTL SUPRAPUBIC CRAMPING. Datetime: 03/27/2019 06:00 Labor Evaluation Frequency: X1 Monitor Mode: External Duration (sec)2399: 60 Quality: Mild Resting Tone [place]: Relaxed Heart Rate FHR Baseline Rate: 125 Monitor Mode: External US Variability: Moderate 6-25 bpm Accelerations: 15X15 Decelerations: None Category: Category I Datetime: 03/27/2019 05:52 Stage of : Antepartum Temperature Route: Oral Contraction Comments: PT DENIES CRAMPING. Comments: PT STATES + FM Pain Presence: None/Denies Pain Type: N/A Datetime: 03/27/2019 05:00 Labor Evaluation Frequency: NONE Monitor Mode: External Resting Tone [place]: Relaxed Heart Rate FHR Baseline Rate: 130 Monitor Mode: External US Variability: Moderate 6-25 bpm Comments: LOC DUE TO PT'S SLEEPING POSITION Pain Presence: None/Denies Pain Type: N/A Datetime: 03/27/2019 04:00 Labor Evaluation Frequency: NONE Monitor Mode: External Resting Tone [place]: Relaxed Heart Rate FHR Baseline Rate: 125 Monitor Mode: External US Variability: Moderate 6-25 bpm Accelerations: 15X15 Decelerations: None Category: Category I Pain Presence: None/Denies Pain Type: N/A Datetime: 03/27/2019 03:00 Labor Evaluation Frequency: NONE Monitor Mode: External Resting Tone [place]: Relaxed Heart Rate FHR Baseline Rate: 120 Monitor Mode: External US Variability: Moderate 6-25 bpm Accelerations: 15X15 Decelerations: None Category: Category I Pain Presence: None/Denies Pain Type: N/A Datetime: 03/27/2019 02:29 Monitor Mode: External US Datetime: 03/27/2019 02:00 Labor Evaluation Frequency: NONE Monitor Mode: External Resting Tone [place]: Relaxed Heart Rate FHR Baseline Rate: 120 Monitor Mode: External US Variability: Moderate 6-25 bpm Accelerations: 15X15 Decelerations: None Category: Category I Pain Presence: None/Denies Pain Type: N/A Datetime: 03/27/2019 01:48 Monitor Mode: External Monitor Mode: External US Datetime: 03/27/2019 01:00 Labor Evaluation Frequency: NONE Monitor Mode: External Resting Tone [place]: Relaxed Heart Rate FHR Baseline Rate: 120 Monitor Mode: External US Variability: Moderate 6-25 bpm Accelerations: 15X15 Decelerations: None Category: Category I Pain Presence: None/Denies Pain Type: N/A Datetime: 03/27/2019 00:10 Stage of : Antepartum Datetime: 03/27/2019 00:00 Heart Rate FHR Baseline Rate: 120 Monitor Mode: External US Variability: Moderate 6-25 bpm Comments: LOC DUE TO PT SLEEPING ON HER RIGHT SIDE. Datetime: 03/26/2019 23:56 Stage of : Antepartum Temperature Route: Oral Pain Presence: None/Denies Datetime: 03/26/2019 23:15 Stage of : Antepartum Datetime: 03/26/2019 23:00 Labor Evaluation Frequency: NONE Monitor Mode: External Resting Tone [place]: Relaxed Heart Rate FHR Baseline Rate: 130 Monitor Mode: External US Variability: Moderate 6-25 bpm Accelerations: 15X15 Decelerations: None Category: Category I Pain Presence: None/Denies Pain Type: N/A Datetime: 03/26/2019 22:35 Stage of : Antepartum Datetime: 03/26/2019 22:00 Stage of : Antepartum Labor Evaluation Frequency: NONE Monitor Mode: External Resting Tone [place]: Relaxed Heart Rate FHR Baseline Rate: 130 Monitor Mode: External US Variability: Moderate 6-25 bpm Accelerations: 15X15 Decelerations: None Category: Category I Pain Presence: None/Denies Pain Type: N/A Pain Assessment Comments: PT STATES HER CHEST PAIN IS GONE. Datetime: 03/26/2019 21:41 Pain Presence: Constant Pain Type: Pressure Pain Location: Right Chest; Left Chest Pain Assessment Comments: pt c/o chest pressure Datetime: 03/26/2019 21:00 Labor Evaluation Frequency: NONE Monitor Mode: External Resting Tone [place]: Relaxed Heart Rate FHR Baseline Rate: 125 Monitor Mode: External US Variability: Moderate 6-25 bpm Accelerations: 15X15 Decelerations: None Category: Category I Pain Presence: None/Denies Pain Type: N/A Datetime: 03/26/2019 20:00 Stage of : Antepartum Labor Evaluation Frequency: X2 Monitor Mode: External Duration (sec)2399: 40-70 Quality: Mild Resting Tone [place]: Relaxed Heart Rate FHR Baseline Rate: 125 Monitor Mode: External US Variability: Moderate 6-25 bpm Accelerations: 15X15 Decelerations: None Category: Category I Pain Presence: None/Denies Pain Type: N/A Datetime: 03/26/2019 19:16 Stage of : Antepartum Assessment Type: Ongoing Assessment Maternal Assessment Level of Consciousness: Fully Conscious DTR's/Clonus: DTRs 2+; No Clonus Headache: Denies Blurred Vision: No Respiratory Effort: Unlabored; Regular Rhythm; Equal Expansion Breath Sounds, Left: Clear and Equal Breath Sounds, Right: Clear and Equal Nausea/Vomiting: Denies RUQ Epigastric Pain: Denies Lower Extremities Edema: None Degree: None Upper Extremities Edema: None Degree: None Facial Edema: None Temperature Route: Oral Fall Risk Assessment History of Falling: (0) No Secondary Diagnosis: (0) No Ambulatory Aid: (0) Bedrest/Nurse Assist IV Therapy: (0) No Gait: (0) Normal/Bedrest/Immobile Mental Status: (0) Oriented to Own Ability Fall Score: 0 Fall Risk Score Definition: No Risk: No action required Monitor Mode: External Contraction Comments: PT DENIES CRAMPING Monitor Mode: External US Comments: PT STATES + FM Pain Presence: None/Denies Pain Type: N/A Vaginal Exam Membrane Status: Intact Vaginal Bleeding: None Datetime: 03/26/2019 18:43 Maternal Assessment Level of Consciousness: Fully Conscious DTR's/Clonus: DTRs 1+ Headache: Denies Blurred Vision: No Respiratory Effort: Unlabored Breath Sounds, Left: Clear and Equal Breath Sounds, Right: Clear and Equal Nausea/Vomiting: Denies RUQ Epigastric Pain: Denies Facial Edema: None Datetime: 03/26/2019 16:45 Labor Evaluation Frequency: 0 Monitor Mode: External Resting Tone [place]: Relaxed Heart Rate FHR Baseline Rate: 130 FHR Baseline Changes: No Baseline Change Variability: Moderate 6-25 bpm Accelerations: 15X15 Decelerations: None Category: Category I Pain Presence: None/Denies Datetime: 03/26/2019 15:20 Labor Evaluation Frequency: 0 Monitor Mode: External Resting Tone [place]: Relaxed Heart Rate FHR Baseline Rate: 125 Monitor Mode: External US FHR Baseline Changes: No Baseline Change Variability: Moderate 6-25 bpm Accelerations: 15X15 Decelerations: None Category: Category I Datetime: 03/26/2019 13:07 Labor Evaluation Frequency: occasional Monitor Mode: External Quality: Mild Resting Tone [place]: Relaxed Heart Rate FHR Baseline Rate: 120 FHR Baseline Changes: No Baseline Change Variability: Moderate 6-25 bpm Accelerations: 15X15 Decelerations: None Category: Category I Datetime: 03/26/2019 11:08 Maternal Assessment Level of Consciousness: Fully Conscious DTR's/Clonus: DTRs 1+ Headache: Denies Blurred Vision: No Nausea/Vomiting: Denies RUQ Epigastric Pain: Denies Labor Evaluation Frequency: 0 Monitor Mode: External Resting Tone [place]: Relaxed Heart Rate FHR Baseline Rate: 120 Monitor Mode: External US FHR Baseline Changes: No Baseline Change Variability: Moderate 6-25 bpm Accelerations: 15X15 Decelerations: None Category: Category I Datetime: 03/26/2019 11:02 Labor Evaluation Frequency: 0 Monitor Mode: External Resting Tone [place]: Relaxed Heart Rate FHR Baseline Rate: 120 Monitor Mode: External US FHR Baseline Changes: No Baseline Change Variability: Moderate 6-25 bpm Accelerations: 15X15 Decelerations: None Category: Category I Datetime: 03/26/2019 09:53 Labor Evaluation Frequency: 0 Monitor Mode: External Resting Tone [place]: Relaxed Heart Rate FHR Baseline Rate: 115 Monitor Mode: External US FHR Baseline Changes: No Baseline Change Variability: Moderate 6-25 bpm Accelerations: 15X15 Decelerations: None Category: Category I Datetime: 03/26/2019 08:55 Labor Evaluation Frequency: 0 Monitor Mode: External Resting Tone [place]: Relaxed Heart Rate FHR Baseline Rate: 120 Monitor Mode: External US FHR Baseline Changes: No Baseline Change Variability: Moderate 6-25 bpm Accelerations: 15X15 Decelerations: None Category: Category I Pain Presence: None/Denies Datetime: 03/26/2019 08:00 Assessment Type: Ongoing Assessment Maternal Assessment Level of Consciousness: Fully Conscious DTR's/Clonus: DTRs 2+; No Clonus Headache: Denies Blurred Vision: No Respiratory Effort: Unlabored; Regular Rhythm; Equal Expansion Respiratory Effort: Unlabored Breath Sounds, Left: Clear and Equal Breath Sounds, Right: Clear and Equal Nausea/Vomiting: Denies RUQ Epigastric Pain: Denies Facial Edema: None Fall Risk Assessment History of Falling: (0) No Secondary Diagnosis: (0) No Ambulatory Aid: (0) Bedrest/Nurse Assist Gait: (0) Normal/Bedrest/Immobile Mental Status: (0) Oriented to Own Ability Datetime: 03/26/2019 06:44 Stage of : Antepartum Labor Evaluation Frequency: 0 Monitor Mode: External Duration (sec)2399: 0 Pattern: Normal: <= 5 Contractions in 10 Minutes Resting Tone [place]: Relaxed Heart Rate FHR Baseline Rate: 120 FHR Baseline Changes: No Baseline Change Variability: Moderate 6-25 bpm Accelerations: 15X15 Decelerations: None Category: Category I Pain Assessment Pain Scale: 0 Pain Presence: None/Denies Pain Type: N/A Vaginal Exam Membrane Status: Intact Datetime: 03/26/2019 04:23 Maternal Assessment Level of Consciousness: Fully Conscious Headache: Denies Blurred Vision: No Nausea/Vomiting: Denies RUQ Epigastric Pain: Present Labor Evaluation Frequency: OCCAS IRRITABILITY Monitor Mode: External Duration (sec)2399: 10 Pattern: Normal: <= 5 Contractions in 10 Minutes Resting Tone [place]: Relaxed Heart Rate FHR Baseline Rate: 120 Monitor Mode: External US FHR Baseline Changes: No Baseline Change Variability: Moderate 6-25 bpm Accelerations: 15X15 Decelerations: None Category: Category I Pain Presence: Constant Pain Type: Dull; Ache Pain Location: Abdomen Pain Relief Measures: Pain Medication Given Pain Assessment Comments: C/O HEARTBURN,,MAG-L-PLUS 30 ML PO GIVEN Datetime: 03/26/2019 03:25 Heart Rate FHR Baseline Rate: 150 Monitor Mode: External US FHR Baseline Changes: No Baseline Change Variability: Moderate 6-25 bpm Accelerations: 15X15 Decelerations: Variable Category: Category I Datetime: 03/26/2019 03:00 Stage of : Antepartum Maternal Assessment Level of Consciousness: Fully Conscious Headache: Denies Respiratory Effort: Unlabored Breath Sounds, Left: Clear and Equal Breath Sounds, Right: Clear and Equal Nausea/Vomiting: Denies Labor Evaluation Frequency: 0 Monitor Mode: External Duration (sec)2399: 0 Pattern: Normal: <= 5 Contractions in 10 Minutes Resting Tone [place]: Relaxed Contraction Comments: SMALL UTERINE IRRIT Heart Rate FHR Baseline Rate: 125 Monitor Mode: External US FHR Baseline Changes: No Baseline Change Variability: Moderate 6-25 bpm Accelerations: 10X10 Decelerations: None Category: Category I Pain Presence: None/Denies Pain Type: N/A Vaginal Exam Membrane Status: Intact Datetime: 03/26/2019 02:29 Stage of : Antepartum Labor Evaluation Frequency: UTERINE IRRITABILITY Monitor Mode: External Duration (sec)2399: 5-10 Quality: Mild Pattern: Normal: <= 5 Contractions in 10 Minutes Resting Tone [place]: Relaxed Heart Rate FHR Baseline Rate: 120 Monitor Mode: External US FHR Baseline Changes: No Baseline Change Variability: Moderate 6-25 bpm Accelerations: 10X10 Decelerations: None Category: Category I Pain Assessment Pain Scale: 0 Pain Presence: None/Denies Pain Type: N/A Vaginal Exam Membrane Status: Intact Datetime: 03/26/2019 01:17 Stage of : Antepartum Labor Evaluation Frequency: 0 Monitor Mode: External Duration (sec)2399: 0 Pattern: Normal: <= 5 Contractions in 10 Minutes Resting Tone [place]: Relaxed Heart Rate FHR Baseline Rate: 120 Monitor Mode: External US FHR Baseline Changes: No Baseline Change Variability: Moderate 6-25 bpm Accelerations: 10X10 Decelerations: None Category: Category I Datetime: 03/25/2019 23:10 Stage of : Antepartum Labor Evaluation Frequency: 0 Monitor Mode: External Duration (sec)2399: 0 Pattern: Normal: <= 5 Contractions in 10 Minutes Heart Rate FHR Baseline Rate: 125 Monitor Mode: External US FHR Baseline Changes: No Baseline Change Variability: Moderate 6-25 bpm Accelerations: 10X10 Decelerations: None Category: Category I Pain Presence: None/Denies Vaginal Exam Membrane Status: Intact Datetime: 03/25/2019 23:00 Stage of : Antepartum Maternal Assessment Level of Consciousness: Fully Conscious Headache: Denies Blurred Vision: No Respiratory Effort: Unlabored Breath Sounds, Left: Clear and Equal Breath Sounds, Right: Clear and Equal Nausea/Vomiting: Denies RUQ Epigastric Pain: Denies Labor Evaluation Frequency: 0 Monitor Mode: External Duration (sec)2399: 0 Pattern: Normal: <= 5 Contractions in 10 Minutes Resting Tone [place]: Relaxed Heart Rate FHR Baseline Rate: 135 Monitor Mode: External US FHR Baseline Changes: No Baseline Change Variability: Moderate 6-25 bpm Accelerations: 15X15 Decelerations: None Category: Category I Pain Assessment Pain Scale: 0 Pain Presence: None/Denies Pain Type: N/A Vaginal Exam Membrane Status: Intact Datetime: 03/25/2019 22:10 Labor Evaluation Frequency: 0 Monitor Mode: External Duration (sec)2399: 0 Pattern: Normal: <= 5 Contractions in 10 Minutes Resting Tone [place]: Relaxed Heart Rate FHR Baseline Rate: 125 Monitor Mode: External US FHR Baseline Changes: No Baseline Change Variability: Moderate 6-25 bpm Accelerations: 15X15 Decelerations: None Pain Presence: None/Denies Pain Type: N/A Datetime: 03/25/2019 21:22 Stage of : Antepartum Headache: Denies Labor Evaluation Frequency: 0 Monitor Mode: External Duration (sec)2399: 0 Pattern: Normal: <= 5 Contractions in 10 Minutes Resting Tone [place]: Relaxed Heart Rate FHR Baseline Rate: 125 Monitor Mode: External US FHR Baseline Changes: No Baseline Change Variability: Moderate 6-25 bpm Accelerations: 15X15 Decelerations: None Category: Category I Pain Assessment Pain Scale: 0 Pain Presence: None/Denies Pain Type: N/A Pain Goal: 2 Datetime: 03/25/2019 20:49 Headache: Denies Respiratory Effort: Unlabored Breath Sounds, Left: Clear and Equal Breath Sounds, Right: Clear and Equal Nausea/Vomiting: Denies Labor Evaluation Frequency: OCCAS UTERINE IRRIT Duration (sec)2399: 10 Pattern: Normal: <= 5 Contractions in 10 Minutes Heart Rate FHR Baseline Rate: 120 FHR Baseline Changes: No Baseline Change Variability: Moderate 6-25 bpm Accelerations: 10X10 Decelerations: None Category: Category I Pain Assessment Pain Scale: 0 Pain Presence: None/Denies Pain Type: N/A Vaginal Exam Membrane Status: Intact Datetime: 03/25/2019 20:01 Maternal Assessment Level of Consciousness: Fully Conscious Headache: Denies Respiratory Effort: Unlabored Breath Sounds, Left: Clear and Equal Breath Sounds, Right: Clear and Equal Nausea/Vomiting: Denies Heart Rate FHR Baseline Rate: 120 Monitor Mode: External US FHR Baseline Changes: No Baseline Change Variability: Moderate 6-25 bpm Accelerations: 15X15 Decelerations: None Category: Category I Pain Presence: None/Denies Pain Type: N/A Vaginal Exam Membrane Status: Intact Datetime: 03/25/2019 19:45 Stage of : Antepartum Maternal Assessment Level of Consciousness: Fully Conscious DTR's/Clonus: DTRs 2+ Headache: Denies Blurred Vision: No Respiratory Effort: Unlabored Breath Sounds, Left: Clear and Equal Breath Sounds, Right: Clear and Equal Nausea/Vomiting: Denies RUQ Epigastric Pain: Denies Facial Edema: None Labor Evaluation Frequency: 0 Monitor Mode: External Duration (sec)2399: 0 Pattern: Normal: <= 5 Contractions in 10 Minutes Resting Tone [place]: Relaxed Contraction Comments: PT STATES NO PRESSURE OR PAIN OF UTCS FELT Heart Rate FHR Baseline Rate: 125 Monitor Mode: External US FHR Baseline Changes: No Baseline Change Variability: Moderate 6-25 bpm Accelerations: 15X15 Decelerations: None Category: Category I Pain Assessment Pain Scale: 0 Pain Presence: None/Denies Pain Type: N/A Pain Goal: 2 Vaginal Exam Membrane Status: Intact Datetime: 03/25/2019 18:50 Labor Evaluation Frequency: 0 Monitor Mode: External Pattern: Normal: <= 5 Contractions in 10 Minutes Resting Tone [place]: Relaxed Heart Rate FHR Baseline Rate: 125 Monitor Mode: External US FHR Baseline Changes: No Baseline Change Variability: Moderate 6-25 bpm Accelerations: 15X15 Decelerations: None Category: Category I Datetime: 03/25/2019 17:51 Labor Evaluation Frequency: X1 Monitor Mode: External Quality: Mild Resting Tone [place]: Relaxed Heart Rate FHR Baseline Rate: 120 Monitor Mode: External US FHR Baseline Changes: No Baseline Change Variability: Moderate 6-25 bpm Accelerations: 15X15 Decelerations: None Category: Category I Datetime: 03/25/2019 17:17 Stage of : Antepartum Datetime: 03/25/2019 16:30 Labor Evaluation Frequency: 0 Monitor Mode: External Quality: Mild Pattern: Normal: <= 5 Contractions in 10 Minutes Resting Tone [place]: Relaxed Heart Rate FHR Baseline Rate: 120 Monitor Mode: External US FHR Baseline Changes: No Baseline Change Variability: Moderate 6-25 bpm Accelerations: 15X15 Decelerations: None Category: Category I Datetime: 03/25/2019 15:39 Labor Evaluation Frequency: 0 Monitor Mode: External Pattern: Normal: <= 5 Contractions in 10 Minutes Resting Tone [place]: Relaxed Heart Rate FHR Baseline Rate: 130 Monitor Mode: External US FHR Baseline Changes: No Baseline Change Variability: Moderate 6-25 bpm Accelerations: 15X15 Decelerations: None Category: Category I Datetime: 03/25/2019 15:38 Stage of : Antepartum Temperature Route: Oral Pain Assessment Pain Scale: 0 Pain Presence: None/Denies Pain Goal: 0 Datetime: 03/25/2019 15:34 Stage of : Antepartum Datetime: 03/25/2019 14:55 Pain Assessment Pain Scale: 0 Datetime: 03/25/2019 14:30 Labor Evaluation Frequency: 0 Monitor Mode: External Pattern: Normal: <= 5 Contractions in 10 Minutes Resting Tone [place]: Relaxed Heart Rate FHR Baseline Rate: 130 Monitor Mode: External US FHR Baseline Changes: No Baseline Change Variability: Moderate 6-25 bpm Accelerations: 15X15 Decelerations: None Category: Category I Datetime: 03/25/2019 13:30 Labor Evaluation Frequency: 0 Monitor Mode: External Pattern: Normal: <= 5 Contractions in 10 Minutes Resting Tone [place]: Relaxed Heart Rate FHR Baseline Rate: 130 Monitor Mode: External US FHR Baseline Changes: No Baseline Change Variability: Moderate 6-25 bpm Accelerations: 15X15 Decelerations: None Category: Category I Datetime: 03/25/2019 12:46 Assessment Type: Ongoing Assessment Maternal Assessment Level of Consciousness: Fully Conscious DTR's/Clonus: DTRs 2+; No Clonus Headache: Denies Blurred Vision: No Respiratory Effort: Unlabored; Regular Rhythm Datetime: 03/25/2019 12:35 Labor Evaluation Frequency: 0 Monitor Mode: External Pattern: Normal: <= 5 Contractions in 10 Minutes Resting Tone [place]: Relaxed Heart Rate FHR Baseline Rate: 130 Monitor Mode: External US FHR Baseline Changes: No Baseline Change Variability: Moderate 6-25 bpm Accelerations: 15X15 Decelerations: None Category: Category I Datetime: 03/25/2019 11:55 Stage of : Antepartum Temperature Route: Oral Pain Assessment Pain Scale: 0 Pain Presence: None/Denies Pain Goal: 0 Datetime: 03/25/2019 11:35 Labor Evaluation Frequency: 0 Monitor Mode: External Pattern: Normal: <= 5 Contractions in 10 Minutes Heart Rate FHR Baseline Rate: 120 Monitor Mode: External US FHR Baseline Changes: No Baseline Change Variability: Moderate 6-25 bpm Accelerations: 15X15 Decelerations: None Category: Category I Datetime: 03/25/2019 10:00 Assessment Type: Ongoing Assessment Maternal Assessment Level of Consciousness: Fully Conscious DTR's/Clonus: DTRs 2+; No Clonus Headache: Denies Respiratory Effort: Unlabored; Regular Rhythm Breath Sounds, Left: Clear and Equal Breath Sounds, Right: Clear and Equal Labor Evaluation Frequency: 0 Monitor Mode: External Pattern: Normal: <= 5 Contractions in 10 Minutes Resting Tone [place]: Relaxed Heart Rate FHR Baseline Rate: 120 Monitor Mode: External US FHR Baseline Changes: No Baseline Change Variability: Moderate 6-25 bpm Accelerations: 15X15 Decelerations: None Category: Category I Datetime: 03/25/2019 09:00 Labor Evaluation Frequency: 0 Monitor Mode: External Pattern: Normal: <= 5 Contractions in 10 Minutes Resting Tone [place]: Relaxed Heart Rate FHR Baseline Rate: 120 Monitor Mode: External US FHR Baseline Changes: No Baseline Change Variability: Moderate 6-25 bpm Accelerations: 15X15 Decelerations: None Category: Category I Datetime: 03/25/2019 08:07 Labor Evaluation Frequency: X2 Monitor Mode: External Quality: Mild Pattern: Normal: <= 5 Contractions in 10 Minutes Resting Tone [place]: Relaxed Heart Rate FHR Baseline Rate: 120 Monitor Mode: External US FHR Baseline Changes: No Baseline Change Variability: Moderate 6-25 bpm Accelerations: 15X15 Decelerations: None Category: Category I Datetime: 03/25/2019 08:06 Stage of : Antepartum Temperature Route: Oral Pain Assessment Pain Scale: 4 Pain Presence: Intermittent Pain Type: Contraction Pain Location: Abdomen Pain Relief Measures: Comfort Measures Datetime: 03/25/2019 07:53 Assessment Type: Ongoing Assessment Maternal Assessment Level of Consciousness: Fully Conscious DTR's/Clonus: DTRs 2+; No Clonus Headache: Denies Blurred Vision: No Respiratory Effort: Unlabored; Regular Rhythm; Equal Expansion Breath Sounds, Left: Clear and Equal Breath Sounds, Right: Clear and Equal Nausea/Vomiting: Denies RUQ Epigastric Pain: Denies Lower Extremities Edema: None Degree: None Upper Extremities Edema: None Degree: None Facial Edema: None Fall Risk Assessment History of Falling: (0) No Secondary Diagnosis: (0) No Ambulatory Aid: (0) Bedrest/Nurse Assist IV Therapy: (20) Yes Gait: (0) Normal/Bedrest/Immobile Mental Status: (0) Oriented to Own Ability Fall Score: 20 Fall Risk Score Definition: No Risk: No action required Datetime: 03/25/2019 07:49 Stage of : Antepartum Datetime: 03/25/2019 06:50 Labor Evaluation Frequency: x2 Monitor Mode: External Duration (sec)2399: 50-60 Quality: Mild Resting Tone [place]: Relaxed Heart Rate FHR Baseline Rate: 125 Monitor Mode: External US Variability: Moderate 6-25 bpm Accelerations: 15X15 Decelerations: None Category: Category I Datetime: 03/25/2019 05:50 Labor Evaluation Frequency: x3 Monitor Mode: External Duration (sec)2399: 40-60 Quality: Mild Resting Tone [place]: Relaxed Heart Rate FHR Baseline Rate: 125 Monitor Mode: External US Variability: Moderate 6-25 bpm Accelerations: 15X15 Decelerations: None Category: Category I Datetime: 03/25/2019 04:50 Labor Evaluation Frequency: X1 Monitor Mode: External Duration (sec)2399: 60 Quality: Mild Resting Tone [place]: Relaxed Heart Rate FHR Baseline Rate: 125 Monitor Mode: External US Variability: Moderate 6-25 bpm Accelerations: 15X15 Decelerations: None Category: Category I Pain Presence: None/Denies Datetime: 03/25/2019 03:50 Labor Evaluation Frequency: X5 Monitor Mode: External Duration (sec)2399: 40-60 Quality: Mild Resting Tone [place]: Relaxed Heart Rate FHR Baseline Rate: 125 Monitor Mode: External US Variability: Moderate 6-25 bpm Accelerations: 15X15 Decelerations: None Category: Category I Pain Presence: None/Denies Datetime: 03/25/2019 02:50 Labor Evaluation Frequency: 0 Monitor Mode: External Resting Tone [place]: Relaxed Heart Rate FHR Baseline Rate: 130 Variability: Moderate 6-25 bpm Comments: LOSS OF CONTACT DUE TO MATERNAL MOVEMENTS. Datetime: 03/25/2019 01:50 Labor Evaluation Frequency: OCCASIONAL Monitor Mode: External Duration (sec)2399: 40-50 Quality: Mild Resting Tone [place]: Relaxed Heart Rate FHR Baseline Rate: 145 Monitor Mode: External US Variability: Moderate 6-25 bpm Accelerations: 15X15 Decelerations: None Category: Category I Pain Presence: None/Denies Datetime: 03/25/2019 00:50 Labor Evaluation Frequency: X4 Monitor Mode: External Duration (sec)2399: 40-50 Quality: Mild Resting Tone [place]: Relaxed Heart Rate FHR Baseline Rate: 135 Monitor Mode: External US Variability: Moderate 6-25 bpm Accelerations: 15X15 Decelerations: None Category: Category I Pain Presence: None/Denies Datetime: 03/24/2019 21:55 Fall Score: 0 Fall Risk Score Definition: No Risk: No action required Datetime: 03/24/2019 17:48 Fall Score: 0 Fall Risk Score Definition: No Risk: No action required Datetime: 03/24/2019 17:43 EGA: 32.1 Datetime: 03/24/2019 16:57 EGA: 32.1
--- NOTE | 2019-04-23 15:36 | PN ---
Triage Information Date/Time 04/23/2019 Reason for visit: Uterine contractions Weeks of Gestation 36 weeks and 3 days /Para Diabetes: none Hypertention: none Additional information 33 years old female with IUP at 36 weeks and 3 days and preantal care with at [facility] presented with complaint of contractions. Patient has history of delivery in the past. She had a history of delivery at 26 weeks. Her baby had multiple morbidities. Currently her son who was delivered at 26 weeks diagnosed with pneumonia and had been in the hospital. Patient had been taking care of her today. Had not been able to drink fluids and was complaining of contractions. Patient presented to labor and delivery with complaint of contractions. Denies any leaking of fluid, vaginal bleeding or decreased movement. Patient had been on Procardia due to contraction and current as well discharged home with Procardia before could not be able to take Procardia and since then her contraction restarted. Patient also complaining of dysuria and suprapubic pain.\Had a history of C- section x2. Objective Vital Signs Date Temp Pulse Resp B/P (MAP) Pulse Ox O2 O2 Flow FiO2 Time Delivery Rate 04/23/19 98.2 83 18 123/68 Room Air 00:03 (86) Heart Rate: 130's Heart Rate Comments Appropriate for gestational age and category 1 Contractions: < 5 Minutes Apart Exam Appearance: Alert and oriented x4 appears to be mild distress. Abdomen: Soft, gravid, fundal height consider gestational age, there is slight suprapubic tenderness noted NST: Category 1, occasional contraction noted on the monitor Contractions resolved after hydration DVT: Reassuring UA clean VS - Last 72 Hours, by Label Date Temp Pulse Resp B/P (MAP) Pulse Ox O2 O2 Flow FiO2 Time Delivery Rate 04/23/19 98.2 83 18 123/68 Room Air 00:03 (86) Laboratory Tests Test 04/23/19 00:20 Urine Color SIN Urine Clarity SLIGHTLY CLOUDY A Urine pH 5.0 Urine Specific [place] 1.032 H Urine Ketones 1+ H Urine Nitrite NEGATIVE Urine Bilirubin NEGATIVE Urine Urobilinogen 2+ H Urine Leukocyte Esterase NEGATIVE Urine Microscopic RBC 11 H Urine Microscopic WBC 4 Urine Squamous Epithelial Cells FEW Urine Bacteria FEW A Urine Mucus MANY A Urine Hemoglobin 1+ H Urine Glucose NEGATIVE Urine Total Protein 1+ H Results/Medications Results 24 hrs Laboratory Tests Test 04/23/19 00:20 Urine Color SIN Urine Clarity SLIGHTLY CLOUDY A Urine pH 5.0 Urine Specific [place] 1.032 H Urine Ketones 1+ H Urine Nitrite NEGATIVE Urine Bilirubin NEGATIVE Urine Urobilinogen 2+ H Urine Leukocyte Esterase NEGATIVE Urine Microscopic RBC 11 H Urine Microscopic WBC 4 Urine Squamous Epithelial Cells FEW Urine Bacteria FEW A Urine Mucus MANY A Urine Hemoglobin 1+ H Urine Glucose NEGATIVE Urine Total Protein 1+ H Disposition: Discharge Assessment/Plan IUP at 36 weeks and 3 days contraction, dehydration, resolved after hydration testing reassuring Suprapubic pain and dysuria Exam consistent with likely UTI Urine is negative however urine was sent for culture and sensitivity due to current symptoms Patient will be discharged home with a prescription of Macrobid twice a day for 7 days. She will have a follow-up within 2 days with primary OB office clinic for follow-up of urine culture. If urine culture is negative can stop antibiotics. Adequate p.o. hydration discussed with the patient. All questions were answered to patient's best satisfaction. labor precautions and kick count discussed. Patient verbalized understanding. ROSEANNA CASTELLANOS MD Apr 23, 2019 15:36
== END 2019-04-23 02:32 | disposition home or self-care (01) ==
LOC: OBT 23:15 → L-D 23:15 → OBT 04-23 02:32
PROVIDERS: ATTEND Obstetrics & Gynecology
DX: O62.9 Abnormality of forces of labor, unspecified (principal); Z3A.36 36 weeks gestation of pregnancy
CPT/HCPCS: 76818; 81001; Z7500; G0463

== ENCOUNTER 2019-04-30 20:17 | Inpatient (IN) | payer MEDICAID ==
[~2019-04-30] VITALS: Ht 152.4 cm; Wt 66.5 kg
[2019-04-30 21:27] VITALS: BP 114/75; PULSE 96; RESP 17
[2019-04-30] MEDS ORDERED: LACTATED RINGER'S 1,000 ML IV SCH (21:54)
[2019-04-30] MEDS ORDERED: OXYTOCIN 30 UNITS/LR 500 ML IV PRN (22:00)
[2019-04-30] MEDS ORDERED: CEFAZOLIN 2 GM/50 ML (PMX) 50 ML IVPB SCH (22:00)
[2019-04-30] MEDS ORDERED: METHYLERGONOVINE 0.2 MG INJ IM PRN (22:00)
[2019-04-30] MEDS ORDERED: MISOPROSTOL 200 MCG TAB PR PRN (22:00)
[2019-04-30] MEDS ORDERED: CARBOPROST 250 MCG INJ IM PRN (22:00)
[2019-04-30] MEDS ORDERED: ONDANSETRON 4 MG INJ IV STA (22:07)
[2019-04-30] MEDS ORDERED: METOCLOPRAMIDE 10 MG INJ IV ONE (22:08)
--- NOTE | 2019-04-30 22:17 | PREAC ---
Date/Time of Note Date/Time of Note DATE: 04/30/19 TIME: 22:17 Anesthesia Eval and Record Evaluation Time Pre-Procedure Interview DATE: 04/30/19 TIME: 22:17 Age 33 Sex female NPO: 8 hrs Preoperative diagnosis Planned procedure repeat c/s Past Medical History Past Medical History: Includes GI: Obesity Surgery & Anesthesia Issues No known issue Meds Anticoagulation: No Beta Vincenzo within 24 hr: No Reason Beta Vincenzo not given: Pt. not on B-Vincenzo Reported Medications Multivit/Min/Fol Ac/Iron/Pren* ( S*) 1 Tab Tab, 1 TAB PO DAILY, TAB 02/11/17 Discontinued Reported Medications Nifedipine* (Procardia*) 10 Mg Capsule, 10 MG PO Q6, CAP 04/23/19 Current Medications Lactated Ringer's 1,000 ml @ 125 mls/hr Q8H IV ; Start 04/30/19 at 21:54 Cefazolin Sodium/ Dextrose 50 ml @ 100 mls/hr ONCE IVPB ; Start 04/30/19 at 22:00 Oxytocin/Lactated Ringer's 500 ml @ 0 mls/hr ONCE PRN IV .VAGINAL BLEEDING; Start 04/30/19 at 22:00 Methylergonovine Maleate (Methergine) 0.2 mg ONCE PRN IM .VAGINAL BLEEDING; Start 04/30/19 at 22:00 Carboprost Tromethamine (Hemabate) 250 mcg ONCE PRN IM .VAGINAL BLEEDING; Start 04/30/19 at 22:00 Misoprostol (Cytotec) 1,000 mcg ONCE PRN IL .VAGINAL BLEEDING; Start 04/30/19 at 22:00 Meds reviewed: Yes Allergies Coded Allergies: No Known Drug Allergy (Verified Allergy, Mild, 04/30/19) Allergies Reviewed: Yes Labs/Studies Labs Reviewed: Reviewed by anesthesiologist Result Diagram: 04/30/192204 Laboratory Tests 04/30/19 22:05 test: Positive Pre-procedure Exam Last vitals Vital Signs Date Temp Pulse Resp B/P (MAP) Pulse Ox O2 O2 Flow FiO2 Time Delivery Rate 04/30/19 98.2 96 17 114/75 Room Air 21:27 (88) Airway: Adequate mouth opening, Adequate thyromental dist Mallampati: Mallampati II Teeth: Normal Lung: Normal Heart: Normal ASA Physical Status ASA physical status: 2 Emergency: None Planned Anesthetic Neuraxial: Spinal, Epidural Planned Pain Management Sub-arachniod narcotics Pre-operative Attestations Prior to commencing anesthesia and surgery, the patient was re-evaluated, there was verification of: *The patient's identity *The results of appropriate recent lab work and preoperative vital signs *The above evaluation not changing prior to induction *Anesthetic plan, risk benefits, alternative and complications discussed with patient/family; questions answered; patient/family understands, accepts and wishes to proceed. SYLVIA CASANOVA Apr 30, 2019 22:17
[2019-04-30] MEDS ORDERED: HYDROmorphONE 0.5 MG/0.5 ML SYG IV PRN ×2 (22:30)
[2019-04-30] MEDS ORDERED: ONDANSETRON 4 MG INJ IV PRN ×2 (22:30)
[2019-04-30] MEDS ORDERED: METOCLOPRAMIDE 10 MG INJ IV PRN (22:30)
[2019-04-30] MEDS ORDERED: NALOXONE (0.4 MG/ML) INJ IV PRN (22:30)
[2019-04-30] MEDS ORDERED: FENTAnyl 50 MCG/ML VIAL IV PRN ×3 (22:30)
[2019-04-30] MEDS ORDERED: ALBUTEROL 0.083% (NEB) 2.5 MG/3 ML AMP HHN PRN (22:30)
[2019-04-30] MEDS ORDERED: HYDROmorphONE 1 MG/5 ML IV SYRINGE IV PRN ×3 (22:30)
[2019-04-30] MEDS ORDERED: DIPHENHYDRAMINE 50 MG INJ IV PRN ×2 (22:30)
[2019-04-30] MEDS ORDERED: KETOROLAC 30 MG INJ IV PRN (22:30)
[2019-04-30] MEDS ORDERED: AZITHROMYCIN 500MG/NS (PMX) 250 ML IVPB ONE (23:00)
[2019-04-30] MEDS ORDERED: morphine SULFATE/PF (10 MG/10 ML) INJ ONE (23:28)
--- NOTE | 2019-04-30 23:37 | HP ---
Date/Time of Note Date/Time of Note DATE: 04/30/19 TIME: 23:22 OB - History Hx of Present Free Text/Dictation 33y.0 here at triage with c/o uc's with mucous discharge with intact membrane. VE /-2 pain level 8/10 known to be A1DM had x1 x2 C/S desire to have tubal sterilization. admittted for R C/S and BTL. Chief Complaint: UC's Estimated Due Date: May 18, 2019 : 5 Para: 3 Spontaneous : 0 Therapeutic : 1 Care: Limited Care Ultrasounds: Other Obstetrical Complications: Gestational Diabetes ( poss ly elevated 1hr GTT but no f/u) Medical Complications: None Past Family/Social History * Past Medical, Surgical, Family and Obstetric Histories reviewed from chart. Blood Type: A+ Rubella: immune RPR/VDRL: Negative GBS Status: Unknown HBsAG: Negative (?) OB Admission Exam Vital Signs Vital Signs Vital Signs Date Temp Pulse Resp B/P (MAP) Pulse Ox O2 O2 Flow FiO2 Time Delivery Rate 04/30/19 98.2 96 17 114/75 Room Air 21:27 (88) Physical Exam HEENT: WNL Heart: Rhythm Normal Lungs: Clear, Equal Abdomen: WNL Extremities: Normal Reflexes: Normal Cervical Dilatation: 3cm Effacement: 75% Station: -2 Membranes: Intact Amniotic Fluid: Unevaluable Heart Rate: 140's Accelerations: Accelerations Present Decelerations: No Decelerations Varibility: Moderate Contractions on Admission: < 5 Minutes Apart Intensity: Moderate Last 72 hours Lab Results CBC & BMP 04/30/19 22:05 OB Assessment/Plan Reason for admission: section Other Assessment: IUP 37w3d with x2 previous c/s desire to have tubal sterilization Plan: Section, Other (BTL) ALINA FRYE MD Apr 30, 2019 23:33
[2019-05-01] VITALS (9 sets, daily range): BP systolic 119–142; BP diastolic 71–94; PULSE 71–84; RESP 18–19
[2019-05-01] MEDS ORDERED: OXYTOCIN 30 UNITS/LR 500 ML BAG IV ONE
[2019-05-01] MEDS ORDERED: PHENYLephrine (100 MCG/ML) 10ML SYG ONE
[2019-05-01] MEDS: OXYTOCIN 30 UNITS/LR 500 ML IV SCH ×2 (01:53→05:16)
[2019-05-01] MEDS: KETOROLAC 30 MG INJ IV PRN ×2 (01:57→12:30)
[2019-05-01] MEDS ORDERED: OXYTOCIN 30 UNITS/LR 500 ML IV SCH (02:00)
--- NOTE | 2019-05-01 02:53 | OPPN ---
Date/Time of Note Date/Time of Note DATE: 05/01/19 TIME: 02:49 Operative Report Planned Procedure Procedure date May 01, 2019 Procedure(s) RLTCS Performed by see signature line Jump Roll Operator: FRANKLIN VILLANUEVA 2nd Jump Roll Operator none Anesthesiologist: SYLVIA CASANOVA Pre-procedure diagnosis IUP 37w3d with x2 previous c/s in labor with multiparity for tubal sterilization [id number] Anesthesia Type: [id number] spinal Post-Procedure Post-procedure diagnosis same as above delivered normal male infant Findings Live Baby [m], Apgars [8 and [9], weight [7lb4oz], position [rot], [vx presentation []cord. Estimated Blood Loss: 400 - 500 mls Specimen(s) none Grafts/Implant(s) none Complication(s) none ALINA FRYE MD May 01, 2019 02:53
[2019-05-01] MEDS: LACTATED RINGER'S 1,000 ML IV SCH ×3 (04:34→16:53)
[2019-05-01] MEDS ORDERED: DIPHENHYDRAMINE 50 MG INJ IV PRN (05:00)
[2019-05-01] MEDS ORDERED: LANOLIN HPA 1 PKT TOP PRN (05:00)
[2019-05-01] MEDS ORDERED: ZOLPIDEM 5 MG TAB PO PRN (05:00)
[2019-05-01] MEDS ORDERED: OXYTOCIN 30 UNITS/LR 500 ML IV PRN (05:00)
[2019-05-01] MEDS ORDERED: MISOPROSTOL 200 MCG TAB PR PRN (05:00)
[2019-05-01] MEDS ORDERED: METHYLERGONOVINE 0.2 MG INJ IM PRN (05:00)
[2019-05-01] MEDS ORDERED: ONDANSETRON 4 MG INJ IV PRN (05:00)
[2019-05-01] MEDS ORDERED: CARBOPROST 250 MCG INJ IM PRN (05:00)
[2019-05-01] MEDS: SENNA/DOCUSATE NA (8.6MG/50MG) TAB PO SCH ×2 (09:00→20:58)
--- NOTE | 2019-05-01 11:31 | OPR ---
DATE OF OPERATION: 05/01/2019 PREOPERATIVE DIAGNOSIS: 37 weeks 3 days, with 2 previous sections, in labor, mult iparity for tubal sterilization. POSTOPERATIVE DIAGNOSIS: , 37 weeks 3 days, with 2 previous sections, in labor, de livered normal male infant. Baby weighed 7 pounds 4 ounces, multiparity for tubal sterilization. OPERATION PERFORMED: Repeat low transverse section and lysis of adhesions, left tubal ligat ion per manually, right fimbriectomy. ANESTHESIA: Spinal. ANESTHESIOLOGIST: Dr. Abbasi. APPLICATION MANAGER: Deandre Parish MD SURGEON: Holger Squires MD PROCEDURE: Under the proper induction of spinal anesthesia, the patient was placed in the [facility] ion. To catheter was introduced in usual fashion. Under sterile condition, repositioned to supin e. Abdominal wall was prepped and draped in usual aseptic manner. A transverse incision was made al prateek the keloid scar from the previous , which was excised and the incision was carried down through the subcutaneous tissue to the anterior recti fascia which was incised transversely in length of the incision. Fascial flap was obtained upward and downward and the rectus muscle was and entered peritoneal cavity with limited space because of the low portion of the anterior aspect of the uterus was adherent to the low peritoneum from the previous , which was and p ushed as much as possible and the anterior uterine wall with some defect due to the scar formation th rough that area. Incision was extended bilaterally and the uterus and the cavity and entered uterine cavity revealed clear amniotic fluid. Normal male infant was born from the right occiput transverse position. Mouth and nose were cleaned. Delayed cord clamping done and cut, handed to the respirato ry care personnel for further care. Cord blood was obtained. Placenta was removed manually. Cavity was completely explored. Uterus was exteriorized without any difficulty and the incision was closed using #1 chromic catgut in continuous manner and second layer was also using 0 chromic catgut in con tinuous manner with caution taken not to involve the bladder area which was very close to the inferio r margin due to the scar formation from the previous surgery, which was gently . Second lay er was successfully docked. No bleeder was noted. After the irrigation done and confirmed, no bleed ers noted. Uterus was relocated into the abdominal cavity. Tubal ligation on the left fallopian tub e was identified, which was rather short and extremely vascular, especially fimbria was very bulky an d short. Decided to do the Waddy instead of a fimbriectomy. So the avascular area in the mesosalp inx, a loop of the tube was created. This was doubly ligated with 0 plain and loop of tube was excis ed. Tubal lumen was cauterized. No bleeder was noted. The right fallopian tube was different; fimb brennon was long enough and we decided to do the fimbriectomy. Fimbria was clamped with a Pean and excis ed the fimbria and the pedicle was doubly ligated with 0 plain, without any difficulty. Bleeder cont rolled on the stump. Rechecked the incisional site and irrigation done and uterus was relocated into the abdominal cavity with caution taken not to disturb the site. Lap count was correct, and ag ain the uterine incisional site rechecked and parietal peritoneum was closed with transversely using 0 chromic catgut in continuous manner including the muscle area, especially on the right upper area w hich was included and rearranged the rectus muscles, which was actually as severe in different angle different directions. The fascia was closed using #1 Vicryl after the piece of Surgicel was laid on the rectus muscle. This was done in 2 segments. Prior to peritonealized, a piece of Surgicel was al so placed on the uterine incisional site. Subcutaneous tissue irrigated with water. This layer was approximated with a 2-0 plain in continuous manner, after the adequate hemostasis was secured. Skin was closed with a 3-0 Monocryl in subcuticular manner. Due to the vascularization, the patient was c ontinuously oozing on the edge and we decided to use a traditional dressing which was placed with pre ssure. Abdominal binder was also placed for the possible oozing from the skin site. Procedure compl eted. Estimated blood loss approximately 500 mL. Urine output was 200 mL which was clear and the pa tient was sent to the recovery room in stable condition. Dictated By: HOLGER ESCOBAR/BALJEET Conf#: [id number] DID#: [id number]
[2019-05-01] MEDS: IBUPROFEN 600 MG TAB PO SCH (23:40)
[2019-05-02] VITALS: BP 114/58; PULSE 73; RESP 19
[2019-05-02] MEDS: OXYCODONE/ACETAMINOPHEN (5/325) TAB PO PRN ×3 (00:51→17:34)
[2019-05-02] MEDS: LACTATED RINGER'S 1,000 ML IV SCH (01:00)
[2019-05-02 03:50] VITALS: BP 101/67; PULSE 69; RESP 18
[2019-05-02] MEDS: IBUPROFEN 600 MG TAB PO SCH ×4 (05:28→23:35)
[2019-05-02 08:00] VITALS: BP 116/71; PULSE 71; RESP 18
[2019-05-02] MEDS: SENNA/DOCUSATE NA (8.6MG/50MG) TAB PO SCH ×2 (08:36→21:22)
--- NOTE | 2019-05-02 10:02 | PAC ---
Date/Time of Note Date/Time of Note DATE: 05/02/19 TIME: 10:01 Post-Anesthesia Notes Post-Anesthesia Note Last documented vital signs Vital Signs Date Temp Pulse Resp B/P (MAP) Pulse Ox O2 O2 Flow FiO2 Time Delivery Rate 05/02/19 97.9 71 18 116/71 Room Air 08:00 (86) 05/01/19 96 16:00 Activity: WNL Respiratory function: WNL Cardiovascular function: WNL Mental status: Baseline Pain reasonably controlled: Yes Hydration appropriate: Yes Nausea/Vomiting absent: Yes SYLVIA CASANOVA May 02, 2019 10:02
[2019-05-02 16:10] VITALS: BP 108/78; PULSE 77; RESP 18
[2019-05-02 19:35] VITALS: BP 126/64; PULSE 72; RESP 18
--- NOTE | 2019-05-02 23:18 | QN ---
Documentation Comment POD #1 s/p repeat with a BTL 05/01 at 38 weeks and in active labor at 3 cm Pt is doing well with good pain control. T=98 BP 126/64 Fundus firm. Dressing is clean, dry and intact. WBC 11.7 Hgb 10.9 Plts 208K. P: Continue care. FRANKLIN VILLANUEVA MD May 02, 2019 23:18
[2019-05-03] MEDS: OXYCODONE/ACETAMINOPHEN (5/325) TAB PO PRN ×4 (01:03→20:34)
[2019-05-03 03:35] VITALS: BP 122/61; PULSE 69; RESP 19
[2019-05-03] MEDS: IBUPROFEN 600 MG TAB PO SCH ×3 (05:30→17:55)
[2019-05-03 08:00] VITALS: BP 132/68; PULSE 69; RESP 18
[2019-05-03] MEDS: SENNA/DOCUSATE NA (8.6MG/50MG) TAB PO SCH ×2 (08:26→20:34)
[2019-05-03 15:40] VITALS: BP 126/62; PULSE 75; RESP 18
[2019-05-03 20:20] VITALS: BP 147/70; PULSE 68; RESP 16
--- NOTE | 2019-05-03 20:55 | PN ---
Date/Time of Note Date/Time of Note DATE: 05/03/19 TIME: 20:53 OB Subjective Subjective Subjective POD#2 Patient is doing well. She denies nausea, vomiting, shortness of breath, chest pain, headache. She has been ambulating without difficulty, tolerating regular diet. Pain is well controlled on current medications OB Objective Objective Objective VS - Last 72 Hours, by Label Date Temp Pulse Resp B/P (MAP) Pulse Ox O2 O2 Flow FiO2 Time Delivery Rate 05/03/19 98.2 75 18 126/62 15:40 (83) 05/03/19 98.1 69 18 132/68 Room Air 08:00 (89) 05/03/19 98.4 69 19 122/61 Room Air 03:35 (81) 05/02/19 98.0 72 18 126/64 Room Air 19:35 (84) 05/02/19 97.1 77 18 108/78 Room Air 16:10 (88) 05/02/19 97.9 71 18 116/71 Room Air 08:00 (86) 05/02/19 98.2 69 18 101/67 Room Air 03:50 (78) 05/02/19 98.8 73 19 114/58 Room Air 00:00 (76) 05/01/19 98.0 84 19 126/72 Room Air 19:30 (90) 05/01/19 98.4 79 18 119/78 96 Room Air 16:00 (92) 05/01/19 98.1 84 18 131/79 96 Room Air 12:11 (96) 05/01/19 98.5 74 18 133/81 99 Room Air 07:45 (98) 05/01/19 71 139/88 06:29 (105) 05/01/19 71 18 137/71 98 Room Air 05:15 (93) 05/01/19 72 132/82 04:45 (99) 05/01/19 72 139/82 04:30 (101) 05/01/19 97.8 74 19 142/94 Room Air 04:15 (110) 04/30/19 98.2 96 17 114/75 Room Air 21:27 (88) General: AAO X 3, comfortable, NAD, appropriate mood and affect. Heart: RRR +S1, +S2, no murmurs. Incision: Clear, dry, intact. No erythema, drainage or induration. Flank: No CVA tenderness (B/L) LE: Mild edema. No clubbing, cyanosis, thigh or calf tenderness (B/L). Homans 'sign is negative OB Assessment/Plan Other plan: 33-year old s/p repeat delivery POD#2 - AF, VSS - Baby is doing well, at bed side. She is bonding well - Contraception methods with R/B/A/FR discussed - Continue care - Discharge home tomorrow - Rx and instruction given - Follow up in one and 6 weeks TYREL ESPARZA May 03, 2019 20:55
--- NOTE | 2019-05-03 20:59 | DS ---
Date/Time of Note Date/Time of Note DATE: 05/03/19 TIME: 20:56 Obstetrical Discharge Record Final Diagnosis Final Diagnosis: Term delivered Other Final Diagnosis 33-year old -0-0-3 s/p repeat delivery and bilateral tubal ligation at 37 weeks and 3 days POD#2. course was unremarkable. She is ambulating and tolerating regular diet. She is voiding without difficulty. Pain is controlled on current medication. - AF, VSS - Baby is doing well, at bed side. She is bonding well - Continue care - Discharge home tomorrow - Rx and instruction given - Follow up in one and 6 weeks Section Section: Repeat Condition on Discharge Physical Assessment Last Vitals: Vital Signs Date Temp Pulse Resp B/P (MAP) Pulse Ox O2 O2 Flow FiO2 Time Delivery Rate 05/03/19 98.2 75 18 126/62 15:40 (83) 05/03/19 Room Air 08:00 05/01/19 96 16:00 Voiding: Yes Bowel Movement: Yes Breast: Soft, non-tender Fundus: Firm Calf Tenderness: No Patient Condition: Stable TYREL ESPARZA May 03, 2019 20:58
[2019-05-03] MEDS ORDERED: MAGNESIUM HYDROXIDE 30ML CUP PO ONE (21:00)
[2019-05-04 04:00] VITALS: BP 130/66; PULSE 68; RESP 17
[2019-05-04] MEDS: IBUPROFEN 600 MG TAB PO SCH ×3 (06:01→12:08)
[2019-05-04 08:00] VITALS: BP 127/70; PULSE 82; RESP 16
[2019-05-04] MEDS ORDERED: MAGNESIUM HYDROXIDE 30ML CUP PO ONE (09:00)
[2019-05-04] MEDS ORDERED: DIPHTH/TET/ACEL PERTUSS (ADULT) 0.5 ML VIAL IM* ONE (09:00)
[2019-05-04] MEDS: SENNA/DOCUSATE NA (8.6MG/50MG) TAB PO SCH (09:08)
--- NOTE | 2019-05-05 09:43 | CONS ---
Consultation Date/Type/Reason Admit Date/Time Apr 30, 2019 at 21:55 Initial Consult Date 05/01/19 Type of Consult anesthesia Reason for Consultation follow up Date/Time of Note DATE: 05/05/19 TIME: 09:41 24 HR Interval Summary Free Text/Dictation pt seen and examined on 05/01/19 was POD#1 s/p repeat c/s with BTL. Pt had received spinal duramorph for post op pain control and states she did not much pain. No BRYANT/Numbness in extremities. Exam/Review of Systems Exam Vitals Vital Signs Date Temp Pulse Resp B/P (MAP) Pulse Ox O2 O2 Flow FiO2 Time Delivery Rate 05/04/19 98.6 82 16 127/70 Room Air 08:00 (89) 05/01/19 96 16:00 Results Result Diagram: 05/02/19 0618 SYLVIA CASANOVA May 05, 2019 09:43
--- NOTE | 2019-05-05 14:34 | DELSUM ---
Delivery Summary A-C Datetime Report Generated by CPN: 05/05/2019 14:34 DELIVERY PERSONNEL Straw Hat Brusher: Arceo, Maria De Jesus MATERNAL INFORMATION Delivery Anesthesia: Spinal Medications in Delivery: SEE ANESTHESIA RECORD Delivery QBL (ml): 600 Placenta Cultured: No Maternal Complications: None LABOR SUMMARY EDC: 05/18/2019 00:00 No. Babies in Womb: 1 Attempted: No Labor Anesthesia: None LABOR INFORMATION Reason for Induction: Not Applicable Onset of Labor: 04/30/2019 16:00 Group B Beta Strep: Done, Result Unknown Antibiotics # of Doses: 2 Antibiotics Time of Last Dose: 04/30/2019 23:45 Steroids Given: None Reason Steroids Not Administered: Not Applicable MEMBRANES Membranes Rupture Method: Artificial Rupture of Membranes: 05/01/2019 00:04 Length of Rupture (hr): 0.02 Amniotic Fluid Color: Clear Amniotic Fluid Amount: Scant Amniotic Fluid Odor: None STAGES OF LABOR Stage 3 hr: 0 Stage 3 min: 0 Total Time in Labor hr: 8 Total Time in Labor min: 5 CSECTION DELIVERY Primary Indication: Repeat Elective CSection Urgency: Elective CSection Incidence: Repeat CSection Incision: Lower Uterine Transverse Sterilization Procedure: Shannen BABY A INFORMATION Delivery Date/Time: 05/01/2019 00:05 Method of Delivery: Born in Route : No : N/A Forceps: N/A Vacuum Extraction: N/A Shoulder Dystocia : N/A SHOULDER DYSTOCIA BABY A Infant Delivery Date/Time: 05/01/2019 00:05 PRESENTATION/POSITION BABY A Presentation: Cephalic Cephalic Presentation: Vertex Breech Presentation: N/A PLACENTA INFORMATION BABY A Placenta Delivery Time : 05/01/2019 00:05 Placenta Method of Delivery: Manual Removal Placenta Status: Delivered SCORES BABY A Heart Rate 1 min: >100 bpm Resp Effort 1 min: Good Cry Reflex Irritability 1 min: Cough/Sneeze/Pulls Away Muscle Tone 1 min: Active Motion Color 1 min: Blue/Pale Resuscitation Effort 1 min: Tactile Stimulation SCORE 1 MIN: 8 Heart Rate 5 min: >100 bpm Resp Effort 5 min: Good Cry Reflex Irritability 5 min: Cough/Sneeze/Pulls Away Muscle Tone 5 min: Active Motion Color 5 min: Body [place], Extremit Blue Resuscitation Effort 5 min: Tactile Stimulation SCORE 5 MIN: 9 INFANT INFORMATION BABY A Gestational Age at Delivery: 37.4 Gestational Status: Early Term- 37- 38.6 Weeks Infant Outcome : Liveborn, with signs of life Infant Condition : Stable Infant Sex: Male IDENTIFICATION/MEDS BABY A ID Band Number: [id number] ID Band Location: Right Leg; Left Arm Sensor Applied: Yes Sensor Number: [id number] Sensor Location : Cord Clamp Vitamin K Given : Not Given Erythromycin Given: Not Given WEIGHT/LENGTH BABY A Infant Birthweight (gm): 3300 Infant Weight (lb): 7 Infant Weight (oz): 4 Length (in): 20.00 Infant Length (cm): 50.80 CORD INFORMATION BABY A No. Cord Vessels: 2 Nuchal Cord : Around Neck x1, Loose Cord Blood Taken: Yes Suction: Mouth; Nose ASSESSMENT BABY A Infant Complications: None Physical Findings at Delivery: Within Normal Limits Infant Respirations: Appears Normal Almond Huller/ALS Called : No Infant Care By: nisha becerril Transferred To: Remains with Mother
== END 2019-05-04 13:20 | disposition home or self-care (01) | DRG 785 ==
LOC: OBT 20:17 → L-D 20:18 → OBT 21:55 → L-D 23:24 → PP1 05-01 03:59
PROVIDERS: ADMIT Obstetrics & Gynecology; ATTEND Obstetrics & Gynecology
PROC: 10D00Z1 Extraction of Products of Conception, Low, Open Approach (ICD-10-PCS; principal; 2019-05-01)
PROC: 0UB70ZZ Excision of Bilateral Fallopian Tubes, Open Approach (ICD-10-PCS; 2019-05-01)
DX: O34.211 Maternal care for low transverse scar from previous cesarean delivery (principal); Z3A.37 37 weeks gestation of pregnancy; Z37.0 Single live birth; Z30.2 Encounter for sterilization
CPT/HCPCS: 80053; 81001; 84560; 85025; 85610; 85730; 86592; 86850; 86900; 86901; 87086; 87340; 88302; 90715; 99464; G0463; J0456; J0690; J1200; J1885; J2274; J2370; J2405; J2590; J2765; J3010; J7120